=== PATIENT | male | born 1940 | race Caucasian/White ===

== ENCOUNTER → 2021-12-11 | Outpatient (CLI) | payer MEDICARE ==
--- NOTE | 2021-12-12 09:11 | US ---
EXAMINATION TYPE: US kidneys/renal and bladder DATE OF EXAM: 12/11/2021 COMPARISON: NONE CLINICAL HISTORY: 81-year-old male R94.4 abnormal KIDNEY FUNCTION RESULTS. TECHNIQUE: Multiple sonographic images of the kidneys and bladder are obtained. FINDINGS: EXAM MEASUREMENTS: Right Kidney: 8.9 x 3.6 x 4.1 cm Left Kidney: 10.8 x 5.8 x 4.7 cm Right Kidney: No hydronephrosis or masses seen Left Kidney: lower/lateral cyst measures 2.0 x 2.0 x 2.3 cmmeasuring 2.0 x 2.0 x 2.3 cm Bladder: there is some mild trabeculated thickening to the wOnly left jet seen in three minutes of sc an time. three minutes of scan time. Incidental note is made of grossly enlarged prostate impressing on the base of the bladder. IMPRESSION: 1. No hydronephrosis. 2. Patel prostatomegaly impressing onto the base of the bladder. Bladder wall appears thickened and t rabeculated, possibly hypertrophy relating to BPH and chronic bladder outlet obstruction. Correlate w ith PSA values and patient's symptoms.
== END | disposition home or self-care (01) ==
LOC: RADUSWWP 16:03
PROVIDERS: ATTEND Family Medicine
DX: N40.0 Benign prostatic hyperplasia without lower urinary tract symptoms (principal); R94.4 Abnormal results of kidney function studies
CPT/HCPCS: 76770

== ENCOUNTER 2022-08-02 07:49 | Day surgery (SDC) | payer MEDICARE ==
[2022-08-02 08:59] VITALS: RESP 16; TEMP 97.5
--- NOTE | 2022-08-02 11:21 | FL ---
INDICATION: Patient age:Male; 81 years old; Reason for study: M50.01 cervical disc dis R26.89 abn gait/mobility; PHH, with history of lumbar and thoracic M50.01 cervical disc dis R26.89 abn gait/mobility. COMPARISON: MRI cervical spine 06/18/2022 After the procedure was explained and informed consent was obtained from the patient, the patient was prepped and draped in the usual sterile fashion. Patient was put in the prone position and the lower lumbar spine was imaged. 1% Lidocaine was used as local anesthetic using a 25 gauge needle. Several attempts were performed to enter into the lumbar thecal sac due to scoliotic and degenerative changes of the lumbar spine. Dr. Ngo was then asked to help with the procedure and was able to gain acce ss with a 22-gauge spinal needle into the thecal sac with return of clear CSF fluid under constant fl uoroscopic guidance. Approximately 14 cc of Isovue M200 contrast was injected into the thecal sac. T he needle was then removed and a Band-Aid was applied. The patient tolerated procedure well. The patient was then sent to the CT unit for CT exam after appr oximately 30 minutes to let the contrast diffuse through the spine.. Fluoroscopic time: 1 minute 57 seconds Fluoroscopic images: 8 IMPRESSIONS: Technically challenging but successful myelogram with CT myelogram to follow.
--- NOTE | 2022-08-02 12:42 | CT ---
EXAMINATION TYPE: CT lumbar spine w con, CT cervical spine w con, CT thoracic spine w con CT DLP: 1034 (accession [id number]), 679 (accession [id number]), 1226 (accession [id number]) mGycm, Automat ed exposure control for dose reduction was used. DATE OF EXAM: 08/02/2022 11:41 AM COMPARISON: Fluoroscopic myelogram 08/02/2022, MRI cervical spine 06/18/2022. CLINICAL INDICATION:Male, 81 years old with history of M50.01 cervical disc dis R26.89 abn gait/mobi lity; PHH, Abnormal gait/mobility TECHNIQUE: Multiple axial images were obtained of the cervical, thoracic, lumbar spine after lumbar approach fluoroscopic allograft was performed. Soft tissue and bone windows in coronal and sagittal planes were obtained and reviewed. FINDINGS: Cervical spine: Alignment: Grade 1 anterolisthesis of C7 on T1. Bone: No evidence of fracture. Postsurgical changes from anterior cervical fusion hardware involving C3-C6 with additional bilateral pedicular screws and rods involving C3-C6 with associated laminectomy changes. The hardware creates streak artifact limiting evaluation. Hardware appears intact. No perip rosthetic lucency identified to suggest loosening. Discs: . Posterior disc osteophyte complex is present which minimally narrows the anterior thecal sac at C2-C3. Bilateral facet uncovertebral hypertrophy are present with mild bilateral neural foraminal stenosis. Poor evaluation from C3 to C6 due to streak artifact from the fusion hardware. Posterior disc osteoph yte complex at C3-C4 with mild effacement of anterior thecal sac. Bilateral facet and uncovertebral j oint arthropathy are present with mild bilateral neural foraminal stenosis. No gross evidence of sign ificant central canal stenosis at C4-C5. Bilateral facet and uncovertebral joint arthropathy demonstr ated with moderate bilateral neural foraminal stenosis. No significant disc pathology identified at C 5-C6. Bilateral facet and uncovertebral arthropathy are present with moderate bilateral neural forami nal stenosis. No significant central canal stenosis at C6-C7. Mild to moderate bilateral neural foraminal stenosis at C6-C7. Other: Partial visualization of median sternotomy wires. Hypodense 1.3 cm nodule within the left thyr oid lobe. Thoracic spine: Alignment: Mild levo curvature of the thoracic spine. Minimal Grade 1 anterolisthesis of T5 on T6 wit h uncovering of the disc. Bone: No evidence of fracture is identified. Multilevel facet arthropathy. Discs: Multilevel degenerative disc disease with disc space narrowed, endplate sclerosis, vacuum disc disease, and anterior osteophytosis. Central disc protrusion at T6-T7 with mild effacement of the anterior thecal sac. Broad-based disc bu lges at T7-T8, T10-T11 T11-T12 with minimal effacement of the anterior thecal sac. Posterior disc ost eophyte complex at T8-T9 with mild effacement of the anterior left thecal sac. The remaining thoracic disc levels do not demonstrate significant central canal stenosis. No significant neural foraminal stenosis demonstrated involving the thoracic spine. Benign-appearing round bone island within the T2 vertebral body. Lumbar spine: Alignment: There are 5 lumbar type vertebral bodies. Levoscoliotic curvature of the lumbar spine. Bone: No evidence of fracture is identified. Multilevel facet arthropathy. Discs: Multilevel Schmorl's nodes. Multilevel degenerative disc disease with disc space narrowed, end plate sclerosis, vacuum disc disease, and anterior osteophytosis. T12-L1: No spinal canal or neural foraminal stenosis is identified. L1-L2: No disc herniation identified. No significant central canal stenosis. Bilateral facet arthropa thy with ligamentum flavum buckling demonstrated. Moderate left and mild right neural foraminal steno sis. L2-L3: No disc herniation identified. Marked bilateral facet arthropathy with ligamentum flavum buckl ing contributing to mild spinal canal stenosis. The neural foramen are patent bilaterally. L3-L4: Eccentric left disc bulge with bilateral facet arthropathy and ligamentum flavum buckling cont ribute to moderate spinal canal stenosis. L4-L5: Marked bilateral facet hypertrophy and ligamentum flavum buckling resulting in moderate spina l canal stenosis. No disc herniation identified. Moderate left neural foraminal stenosis. The right n eural foramen is patent. L5-S1: Broad-based disc bulge with ligamentum flavum buckling and bilateral facet arthropathy contrib uting to mild to moderate central canal stenosis. The neural foramen are patent bilaterally. Other: Nonobstructive bilateral renal calculi. Atherosclerotic calcification of the aorta sigmoid div erticulosis without evidence for acute diverticulitis. IMPRESSION: Cervical spine: 1. No evidence for fracture the cervical spine. 2. Limited examination due to streak artifact from anterior and posterior cervical fusion changes. Fraga rdware appears intact. 3. Multilevel degenerative disc disease and osteoarthritic changes as described above. 4. Grade 1 anterolisthesis of C7 on T1. Thoracic spine: 1. No evidence for fracture of the thoracic spine. 2. T6-T7 central disc herniation with mild effacement of anterior thecal sac. 3. Multilevel degenerative disc disease as described above. Lumbar spine: 1. No evidence for fracture of the lumbar spine. 2. No evidence for disc herniation. 3. Multilevel degenerative disc disease and osteophytic changes. This is most pronounced at L4-L5 an d L5-S1 as described above. 4. Nonobstructive bilateral renal calculi.
[2022-08-02 14:13] VITALS: BP 120/77; PULSE 70
== END 2022-08-02 14:14 | disposition home or self-care (01) ==
LOC: RADPROMAIN 07:49
PROVIDERS: ATTEND Psychiatry & Neurology Neurology
DX: M50.01 Cervical disc disorder with myelopathy, high cervical region (principal); R26.89 Other abnormalities of gait and mobility; E78.5 Hyperlipidemia, unspecified; Z98.890 Other specified postprocedural states; Z82.49 Family history of ischemic heart disease and other diseases of the circulatory system; Z86.16 Personal history of COVID-19
CPT/HCPCS: 62305; 72129; 72126; 72132; J2001; Q9966

== ENCOUNTER 2023-05-16 16:04 | Inpatient (IN) | payer MEDICARE ==
[2023-05-16] MEDS ORDERED: HEPARIN SODIUM 1,000 UN/ML (10ML VL) IV PRN (16:12)
[2023-05-16] MEDS ORDERED: DILTIAZEM 125 MG in SODIUM CHLORIDE 0.9% 100 ML IV SCH (16:15)
[2023-05-16] MEDS ORDERED: HEPARIN SOD,PORK IN 0.45% NACL 25,000 UNIT in 0.45% NACL 1 250ML.BAG IV SCH (16:15)
[2023-05-16 16:25] LABS: Basophils % (A) 0 %; Eosinophils # (A) 0.2 k/uL (0-0.7); Eosinophils % (A) 3 %; HCT 41.6 % (39.0-53.0); HGB 13.8 gm/dL (13.0-17.5); Lymphocytes # (A) 1.7 k/uL (1.0-4.8); Lymphocytes % (A) 25 %; MCH 31.1 pg (25.0-35.0); MCHC 33.2 g/dL (31.0-37.0); MCV 93.6 fL (80.0-100.0); Mean Platelet Volume 7.1; Monocytes # (A) 0.4 k/uL (0-1.0); Monocytes % (A) 6 %; Neutrophils # (A) 4.2 k/uL (1.3-7.7); Neutrophils % (A) 64 %; Platelet Count 199 k/uL (150-450); RBC 4.45 m/uL (4.30-5.90); RDW 12.9 % (11.5-15.5); WBC 6.6 k/uL (3.8-10.6)
[2023-05-16 16:34] LABS: INR 1.2 (<1.2); Partial Thromboplastin Time 28.6 sec (22.0-30.0); Prothrombin Time 12.4 sec (10.0-12.5)
[2023-05-16 16:46] LABS: ALT 21 U/L (4-49); AST 28 U/L (17-59); African American GFR (CKD) 71 (>60 ml/min/1.73 sqM); Albumin 3.8 g/dL (3.5-5.0); Alkaline Phosphatase 106 U/L (38-126); Anion Gap 13 mmol/L; Blood Urea Nitrogen 19 mg/dL (9-20); Calcium 9.3 mg/dL (8.4-10.2); Carbon Dioxide 22 mmol/L (22-30); Chloride 108 mmol/L (98-107); Glucose 110 mg/dL (74-99); Non-African American GFR(CKD) 61 (>60 ml/min/1.73 sqM); Potassium 4.4 mmol/L (3.5-5.1); Sodium 143 mmol/L (137-145); Total Bilirubin 1.2 mg/dL (0.2-1.3); Total Protein 6.6 g/dL (6.3-8.2)
--- NOTE | 2023-05-16 17:40 | ED ---
Arrhythmia/Palpitations HPI - General Chief Complaint: Arrhythmia/Palpitations Stated Complaint: Afib-Transfer Source: EMS Mode of arrival: EMS Limitations: no limitations - History of Present Illness Initial Comments: 82-year-old male presents as a transfer from [facility]. He has a history of coronary artery disease with cabg x3. He was having a cough without chest pain. This has been persistent since he had covid a few months ago. Went into his pcp clinic today and they transferred him to the hospital due to elevated heart rate. Patient found to be in A. fib with RVR which is new onset. He also has a left bundle-branch block however this was present March 2021. Viral swab was performed and was negative. Laboratory studies demonstrated a troponin of 0.029 and a BNP of 7610. Patient transferred to our facility on a Cardizem and heparin drip as he does follow with cardiology at our facility. - Related Data Home Medications Medication Instructions Recorded Confirmed Aspirin [[place] Aspirin EC] 81 mg PO DAILY 07/16/22 05/16/23 Atorvastatin [Lipitor] 40 mg PO HS 07/16/22 05/16/23 Tamsulosin [Flomax] 0.4 mg PO BID 07/16/22 05/16/23 Benzonatate [Tessalon Perles] 100 mg PO TID PRN 05/16/23 05/16/23 Previous Rx's Medication Instructions Recorded Apixaban [Eliquis] 2.5 mg PO BID #90 tab 05/18/23 Metoprolol Tartrate [Lopressor] 50 mg PO BID #90 tab 05/18/23 guaiFENesin-DM 100-10MG/5ML 10 ml PO Q6HR PRN #90 ml 05/18/23 [Robitussin DM] lisinopriL 2.5 mg PO DAILY #30 tablet 05/18/23 Allergies Allergy/AdvReac Type Severity Reaction Status Date / Time No Known Allergies Allergy Verified 05/16/23 18:28 Review of Systems ROS Statement: Those systems with pertinent positive or pertinent negative responses have been documented in the HPI. ROS Other: All systems not noted in ROS Statement are negative. Past Medical History Past Medical History: Coronary Artery Disease (CAD), Hyperlipidemia, Hypertension, Prostate Disorder, Vascular Disorder Additional Past Medical History / Comment(s): Neuropathy both hands and feet. back pain History of Any Multi-Drug Resistant Organisms: None Reported Past Surgical History: Back Surgery, Coronary Bypass/CABG, Heart Catheterization With Stent, Orthopedic Surgery Additional Past Surgical History / Comment(s): cervical surgery for numbness, bilateral knee replacement, bilateral Rotator cuff surgery, rt carotid surgery, CABG -1995, stent 2019 Past Anesthesia/Blood Transfusion Reactions: No Reported Reaction Date of Last Stent Placement:: 2019 Past Psychological History: No Psychological Hx Reported Smoking Status: Former smoker Past Alcohol Use History: Rare Past Drug Use History: None Reported - Past Family History Father Family Medical History: No Reported History General Exam Limitations: no limitations General appearance: alert, in no apparent distress Head exam: Present: atraumatic, normocephalic, normal inspection Eye exam: Present: normal appearance, PERRL, EOMI. Absent: scleral icterus, conjunctival injection, periorbital swelling ENT exam: Present: normal exam, mucous membranes moist Neck exam: Present: normal inspection. Absent: tenderness, meningismus, lymphadenopathy Respiratory exam: Present: normal lung sounds bilaterally. Absent: respiratory distress, wheezes, rales, rhonchi, stridor Cardiovascular Exam: Present: regular rate, irregular rhythm, normal heart sounds. Absent: systolic murmur, diastolic murmur, rubs, gallop, clicks GI/Abdominal exam: Present: soft, normal bowel sounds. Absent: distended, tenderness, guarding, rebound, rigid Extremities exam: Present: normal inspection, full ROM, normal capillary refill. Absent: tenderness, pedal edema, joint swelling, calf tenderness Back exam: Present: normal inspection Neurological exam: Present: alert, oriented X3, CN II-XII intact Psychiatric exam: Present: normal affect, normal mood Skin exam: Present: warm, dry, intact, normal color. Absent: rash Course Vital Signs 05/16/23 05/16/23 05/16/23 16:06 19:25 20:00 Temperature 98.3 F Pulse Rate 77 72 70 Respiratory 16 16 Rate Blood Pressure 144/95 131/80 O2 Sat by Pulse 98 96 Oximetry 05/17/23 05/17/23 05/17/23 00:00 04:00 07:51 Temperature Pulse Rate 70 76 76 Respiratory 21 18 Rate Blood Pressure 104/72 123/90 O2 Sat by Pulse 95 97 Oximetry 05/17/23 05/17/23 05/17/23 08:00 08:46 11:30 Temperature Pulse Rate 84 76 73 Respiratory 16 19 Rate Blood Pressure 118/84 107/67 O2 Sat by Pulse 92 L 100 Oximetry 05/17/23 05/17/23 05/17/23 11:31 11:43 14:59 Temperature Pulse Rate 71 72 61 Respiratory Rate Blood Pressure O2 Sat by Pulse Oximetry 05/17/23 05/17/23 15:09 16:00 Temperature Pulse Rate 65 66 Respiratory 18 Rate Blood Pressure 111/39 O2 Sat by Pulse 98 Oximetry Medical Decision Making - Medical Decision Making Was pt. sent in by a medical professional or institution (, [facility], GENERAL PRACTICE, urgent care, hospital, or long term...) When possible be specific @ -[facility] Did you speak to anyone other than the patient for history (EMS, parent, family, police, friend...)? What history was obtained from this source @ -transferring facility Did you review nursing and triage notes (agree or disagree)? Why? @ -I reviewed and agree with nursing and triage notes Were old charts reviewed (outside hosp., previous admission, EMS record, old EKG, old radiological studies, urgent care reports/EKG's, long term records)? Report findings @ -old charts were reviewed - report from [facility] Differential Diagnosis (chest pain, altered mental status, abdominal pain women, abdominal pain men, vaginal bleeding, weakness, fever, dyspnea, syncope, headache, dizziness, GI bleed, back pain, seizure, CVA, palpatations, mental health, musculoskeletal)? @ -nstemi, stemi, unstable angina, pe EKG interpreted by me (3pts min.). @ -Yes and demonstrates a flutter with a rate of 77. QRS 164. QTC of 428. Right bundle branch block. Left bundle branch block. Negative for sgarbossa criteria X-rays interpreted by me (1pt min.). @ -None done CT interpreted by me (1pt min.). @ -None done U/S interpreted by me (1pt. min.). @ -None done What testing was considered but not performed or refused? (CT, X-rays, U/S, labs)? Why? @ -None What meds were considered but not given or refused? Why? @ -None Did you discuss the management of the patient with other professionals (professionals i.e. , PA, GENERAL PRACTICE, lab, RT, psych nurse, social media community manager, inbound telemarketer, teacher, hazard mitigation officer, case supervisor)? Give summary @ -dr rodrigez for admission Was smoking cessation discussed for >3mins.? @ -No Was critical care preformed (if so, how long)? @ -yes, 35 minutes for heparin management Were there social determinants of health that impacted care today? How? (Ho melessness, low income, unemployed, alcoholism, drug addiction, transportation, low edu. Level, literacy, decrease access to med. care, alf, rehab)? @ -No Was there de-escalation of care discussed even if they declined (Discuss DNR or withdrawal of care, Hospice)? DNR status @ -No What co-morbidities impacted this encounter? (DM, HTN, Smoking, COPD, CAD, Cancer, CVA, ARF, Chemo, Hep., AIDS, mental health diagnosis, sleep apnea, morbid obesity)? @ -afib Was patient admitted / discharged? Hospital course, mention meds given and route, prescriptions, significant lab abnormalities, going to OR and other pertinent info. @ -Upon arrival patient was placed into trauma 2. Thorough history and physical exam was performed. EKG was obtained which demonstrates A. fib with a controlled rate at this time. Patient remains on Cardizem and heparin drip. I repeated laboratory studies. Spoke with Dr. rodrigez for admission with cardiology to consult Undiagnosed new problem with uncertain prognosis? @ -yes Drug Therapy requiring intensive monitoring for toxicity (Heparin, Nitro, Insulin, Cardizem)? @ -heparin Were any procedures done? @ -No Diagnosis/symptom? @ -acute cp, afib with rvr Acute, or Chronic, or Acute on Chronic? @ -acute Uncomplicated (without systemic symptoms) or Complicated (systemic symptoms)? @ -complicated Side effects of treatment? @ -No Exacerbation, Progression, or Severe Exacerbation? @ -No Poses a threat to life or bodily function? How? (Chest pain, USA, DC, pneumonia, PE, COPD, DKA, ARF, appy, cholecystitis, CVA, Diverticulitis, Homicidal, Suicidal, threat to staff... and all critical care pts) @ -yes, patient in afib with rapid rate - Lab Data Result diagrams: 05/17/23 04:52 05/17/23 04:52 Lab Results 05/16/23 05/16/23 05/16/23 Range/Units 16:14 16:14 16:14 WBC 6.6 (3.8-10.6) k/uL RBC 4.45 (4.30-5.90) m/uL Hgb 13.8 (13.0-17.5) gm/dL Hct 41.6 (39.0-53.0) % MCV 93.6 (80.0-100.0) fL MCH 31.1 (25.0-35.0) pg MCHC 33.2 (31.0-37.0) g/dL RDW 12.9 (11.5-15.5) % Plt Count 199 (150-450) k/uL MPV 7.1 Neutrophils % 64 % Lymphocytes % 25 % Monocytes % 6 % Eosinophils % 3 % Basophils % 0 % Neutrophils # 4.2 (1.3-7.7) k/uL Lymphocytes # 1.7 (1.0-4.8) k/uL Monocytes # 0.4 (0-1.0) k/uL Eosinophils # 0.2 (0-0.7) k/uL Basophils # 0.0 (0-0.2) k/uL PT 12.4 (10.0-12.5) sec INR 1.2 H (<1.2) APTT 28.6 (22.0-30.0) sec Sodium 143 (137-145) mmol/L Potassium 4.4 (3.5-5.1) mmol/L Chloride 108 H (98-107) mmol/L Carbon Dioxide 22 (22-30) mmol/L Anion Gap 13 mmol/L BUN 19 (9-20) mg/dL Creatinine 1.12 (0.66-1.25) mg/dL Est GFR (CKD-EPI)AfAm 71 (>60 ml/min/1.73 sqM) Est GFR (CKD-EPI)NonAf 61 (>60 ml/min/1.73 sqM) Glucose 110 H (74-99) mg/dL Calcium 9.3 (8.4-10.2) mg/dL Magnesium 2.0 (1.6-2.3) mg/dL Total Bilirubin 1.2 (0.2-1.3) mg/dL AST 28 (17-59) U/L ALT 21 (4-49) U/L Alkaline Phosphatase 106 (38-126) U/L Troponin I (0.000-0.034) ng/mL Total Protein 6.6 (6.3-8.2) g/dL Albumin 3.8 (3.5-5.0) g/dL Influenza Type A (PCR) (Not Detectd) Influenza Type B (PCR) (Not Detectd) RSV (PCR) (Not Detectd) SARS-CoV-2 (PCR) (Not Detectd) 05/16/23 05/16/23 Range/Units 16:14 16:14 WBC (3.8-10.6) k/uL RBC (4.30-5.90) m/uL Hgb (13.0-17.5) gm/dL Hct (39.0-53.0) % MCV (80.0-100.0) fL MCH (25.0-35.0) pg MCHC (31.0-37.0) g/dL RDW (11.5-15.5) % Plt Count (150-450) k/uL MPV Neutrophils % % Lymphocytes % % Monocytes % % Eosinophils % % Basophils % % Neutrophils # (1.3-7.7) k/uL Lymphocytes # (1.0-4.8) k/uL Monocytes # (0-1.0) k/uL Eosinophils # (0-0.7) k/uL Basophils # (0-0.2) k/uL PT (10.0-12.5) sec INR (<1.2) APTT (22.0-30.0) sec Sodium (137-145) mmol/L Potassium (3.5-5.1) mmol/L Chloride (98-107) mmol/L Carbon Dioxide (22-30) mmol/L Anion Gap mmol/L BUN (9-20) mg/dL Creatinine (0.66-1.25) mg/dL Est GFR (CKD-EPI)AfAm (>60 ml/min/1.73 sqM) Est GFR (CKD-EPI)NonAf (>60 ml/min/1.73 sqM) Glucose (74-99) mg/dL Calcium (8.4-10.2) mg/dL Magnesium (1.6-2.3) mg/dL Total Bilirubin (0.2-1.3) mg/dL AST (17-59) U/L ALT (4-49) U/L Alkaline Phosphatase (38-126) U/L Troponin I 0.034 (0.000-0.034) ng/mL Total Protein (6.3-8.2) g/dL Albumin (3.5-5.0) g/dL Influenza Type A (PCR) Not Detected (Not Detectd) Influenza Type B (PCR) Not Detected (Not Detectd) RSV (PCR) Not Detected (Not Detectd) SARS-CoV-2 (PCR) Not Detected (Not Detectd) Disposition Clinical Impression: Atrial fibrillation with RVR Disposition: ADMITTED IP TO THIS [facility] Condition: Stable Is patient prescribed a controlled substance at d/c from ED?: No Time of Disposition: 18:00 Decision to Admit Reason: Admit from EC Decision Date: 05/16/23 Decision Time: 18:01
[2023-05-16] MEDS ORDERED: NALOXONE 0.4 MG/ML 1 ML VIAL IV PRN ×2 (18:01→20:32)
[2023-05-16] MEDS ORDERED: ACETAMINOPHEN TAB 325 MG TAB PO PRN (20:32)
[2023-05-16] MEDS ORDERED: BENZONATATE 100 MG CAP PO PRN (20:33)
--- NOTE | 2023-05-16 20:39 | P.HPIM ---
History of Present Illness H&P Date: 05/16/23 Chief Complaint: cough 82-year-old male presents as a transfer from [facility]. He has a history of coronary artery disease with cabg x3 and one stent, hypertension. He was having a cough without chest pain. This has been persistent since he had covid a few months ago. Went into his pcp clinic today and they transferred him to the hospital due to elevated heart rate. Patient found to be in A. fib with RVR which is new onset. He also has a left bundle-branch block however this was present March 2021. Viral panel was done at [facility] was performed and was negative. Laboratory studies demonstrated a troponin of 0.029 and a BNP of 7610. Patient transferred to our facility on a Cardizem and heparin drip as he does follow with cardiology at our facility. Denies having palpitations, fevers or chills, chest pain or shortness of breath.x did not show anything acute. Troponin was 0.0-9. Review of Systems Complete review of system performed, pertinent positives per HPI otherwise negative Past Medical History Past Medical History: Coronary Artery Disease (CAD), Hyperlipidemia, Hyp ertension, Prostate Disorder, Vascular Disorder Additional Past Medical History / Comment(s): Neuropathy both hands and feet. back pain History of Any Multi-Drug Resistant Organisms: None Reported Past Surgical History: Back Surgery, Coronary Bypass/CABG, Heart Catheterization With Stent, Orthopedic Surgery Additional Past Surgical History / Comment(s): cervical surgery for numbness, bilateral knee replacement, bilateral Rotator cuff surgery, rt carotid surgery, CABG -1995, stent 2019 Past Anesthesia/Blood Transfusion Reactions: No Reported Reaction Date of Last Stent Placement:: 2019 Past Psychological History: No Psychological Hx Reported Smoking Status: Former smoker Past Alcohol Use History: Rare Past Drug Use History: None Reported - Past Family History Father Family Medical History: No Reported History Medications and Allergies Home Medications Medication Instructions Recorded Confirmed Type Aspirin [[place] Aspirin EC] 81 mg PO DAILY 07/16/22 05/16/23 History Atorvastatin [Lipitor] 40 mg PO HS 07/16/22 05/16/23 History Isosorbide Mononitrate [Isosorbide 30 mg PO DAILY 07/16/22 05/16/23 History Mononitrate ER] Tamsulosin [Flomax] 0.4 mg PO BID 07/16/22 05/16/23 History lisinopriL 2.5 mg PO DAILY 07/16/22 05/16/23 History Benzonatate [Tessalon Perles] 100 mg PO TID PRN 05/16/23 05/16/23 History Allergies Allergy/AdvReac Type Severity Reaction Status Date / Time No Known Allergies Allergy Verified 05/16/23 18:28 Physical Exam Vitals: Vital Signs Temp Pulse Resp BP Pulse Ox 05/16/23 16:06 98.3 F 77 16 144/95 98 Intake and Output 05/16/23 05/16/23 05/16/23 06:59 14:59 22:59 Other: Weight 58.967 kg Constitutional: No acute distress, conversant, pleasant Eyes:Anicteric sclerae, moist conjunctiva, no lid-lag, PERRLA, ENMT: Oropharynx clear, no erythema, exudates Neck: Supple, FROM, no masses, or JVD, No carotid bruits, No thyromegaly Lungs: Clear to auscultation, Clear to percussion, Normal respiratory effort, no accessory muscle use Cardiovascular: Irregular. No murmurs, gallops, or rubs, No peripheral edema Abdominal: Soft, Nontender, no guarding, rebound or rigidity, Normoactive bowel sounds, No hepatomegaly, No splenomegaly, No palpable mass Skin: Normal temperature, tone, texture, turgor, no induration, No subcutaneous nodules, No rash, lesions, No ulcers Extremities: No digital cyanosis, No clubbing, Pedal pulses intact and symmetric al, Radial pulses intact and symmetrical, No calf tenderness Psychiatric: Alert and oriented to person, place and time, appropriate affect, intact judgement Neuro: Muscles Strength 5/5 in all 4 extremities, Sensation to light touch grossly present throughout, Cranial nerves II-XII grossly intact, no focal sensory deficits Results CBC & Chem 7: 05/16/23 16:14 05/16/23 16:14 Labs: Abnormal Lab Results - Last 24 Hours (Table) 05/16/23 05/16/23 Range/Units 16:14 16:14 INR 1.2 H (<1.2) Chloride 108 H (98-107) mmol/L Glucose 110 H (74-99) mg/dL Assessment and Plan Plan: Atrial fibrillation with rapid ventricular response Heart rate is currently controlled on Cardizem drip, continue heparin drip Echocardiogram Cardiology consult Monitor on telemetry Coronary artery disease Currently stable Recheck troponin, negative ALLERGIC bronchitis Likely secondary to recent covid Try duonebs History of hypertension Benign prostatic hypertrophy Stable Continue medications Admit to inpatient, expected length of stay more than 2 midnights
[2023-05-16] MEDS: TAMSULOSIN 0.4 MG CAP.ER.24H PO SCH (20:49)
[2023-05-16] MEDS: ATORVASTATIN 40 MG TAB PO SCH (20:49)
[2023-05-17 05:18] LABS: Basophils # (A) 0.1 k/uL (0-0.2); Basophils % (A) 1 %; Eosinophils # (A) 0.3 k/uL (0-0.7); Eosinophils % (A) 4 %; HCT 39.1 % (39.0-53.0); Lymphocytes # (A) 1.5 k/uL (1.0-4.8); Lymphocytes % (A) 20 %; MCH 31.1 pg (25.0-35.0); MCHC 33.1 g/dL (31.0-37.0); MCV 93.7 fL (80.0-100.0); Mean Platelet Volume 7.6; Monocytes # (A) 0.4 k/uL (0-1.0); Monocytes % (A) 5 %; Neutrophils % (A) 69 %; Platelet Count 199 k/uL (150-450); RBC 4.17 m/uL (4.30-5.90); RDW 13.3 % (11.5-15.5); WBC 7.3 k/uL (3.8-10.6)
[2023-05-17 06:00] LABS: African American GFR (CKD) 74 (>60 ml/min/1.73 sqM); Anion Gap 9 mmol/L; Blood Urea Nitrogen 20 mg/dL (9-20); Calcium 8.9 mg/dL (8.4-10.2); Carbon Dioxide 22 mmol/L (22-30); Chloride 108 mmol/L (98-107); Glucose 115 mg/dL (74-99); Non-African American GFR(CKD) 64 (>60 ml/min/1.73 sqM); Sodium 139 mmol/L (137-145)
[2023-05-17] MEDS: IPRATROPIUM-ALBUTEROL 3 ML NEB INHALATION SCH ×4 (07:51→21:55)
[2023-05-17] MEDS: ASPIRIN 81 MG PO SCH (08:45)
[2023-05-17] MEDS ORDERED: ISOSORBIDE MONONITRATE ER 30 MG TAB.ER.24H PO SCH (09:00)
[2023-05-17] MEDS: APIXABAN 2.5 MG TABLET PO SCH ×2 (11:15→19:59)
[2023-05-17] MEDS: METOPROLOL TARTRATE 50 MG TAB PO SCH ×2 (11:16→19:59)
--- NOTE | 2023-05-17 12:28 | P.PN ---
Subjective Progress Note Date: 05/17/23 Hospital Course: 82-year-old male presents as a transfer from [facility]. He has a history of coronary artery disease with cabg x3 and one stent, hypertension. He was having a cough without chest pain. This has been persistent since he had covid a few months ago. Went into his pcp clinic today and they transferred him to the hospital due to elevated heart rate. Patient found to be in A. fib with RVR which is new onset. He also has a left bundle-branch block however this was present March 2021. Viral panel was done at [facility] was performed and was negative. Laboratory studies demonstrated a troponin of 0.029 and a BNP of 7610. Patient transferred to our facility on a Cardizem and heparin drip as he does follow with cardiology at our facility. Currently rate controlled. Laboratory workup unremarkable except for troponin elevated to 0.039. Remains on Cardizem drip. Cardiology is consulted. Subjective: Patient seen and examined at bedside. No acute events overnight. Denies any chest pain, palpitations, lightheadedness. Does have a cough is persistent. Pertinent positives and negatives as discussed above, a complete review of systems was performed and all other systems are negative. Vitals Signs Reviewed. General: nontoxic, no distress, appears at stated age Derm: warm, dry Head: atraumatic, normocephalic, symmetric Eyes: EOMI, no lid lag, anicteric sclera Mouth: no lip lesion, mucus membranes moist Cardiovascular: S1S2 irregular, no murmur Lungs: CTA bilateral, no rhonchi, no rales , no accessory muscle use Abdominal: soft, nontender to palpation, no guarding, no appreciable organomegaly Ext: no gross muscle atrophy, no edema, no contractures Neuro: CN II-XI grossly intact, no focal neuro deficits Psych: Alert, oriented, appropriate affect Data Reviewed Today: Pertinent Labs: WBC 7.3, hemoglobin 13, creatinine 1.08 Imaging: No new imaging Assessment and Plan: Atrial fibrillation with rapid ventricular response, now rate controlled NSTEMI, type 2 History of CAD -Cardiology consulted, pending recommendations, started on metoprolol 50 twice a day, Eliquis 2.5 twice a day, Cardizem gtt at 2.5 per hour -Continue telemetry monitoring -Echocardiogram pending -On aspirin 81 mg, atorvastatin 40 mg Chronic bronchitis Likely secondary to recent covid -DuoNeb's 4 times a day, Robitussin 10 mL every 6 hours when necessary History of hypertension Benign prostatic hypertrophy Stable Continue medications DVT ppx: Eliquis Code status: Full code Anticipated discharge place: Pending clinical course Anticipated discharge time: Pending clinical course Objective - Vital Signs Vital signs: Vital Signs Temp 98.3 F 05/16/23 16:06 Pulse 72 05/17/23 11:43 Resp 19 05/17/23 11:30 BP 107/67 05/17/23 11:30 Pulse Ox 100 05/17/23 11:30 FiO2 Intake & Output 05/16/23 05/17/23 05/17/23 18:59 06:59 18:59 Intake Total 36.795 Balance 36.795 Weight 58.967 kg Intake: Intake, IV Titration 36.795 Amount Heparin Sod,Pork in 0.45% 36.795 NaCl 25,000 unit In 0.45 % NaCl 1 250ml.bag @ 12 UNITS/KG/HR 7.076 mls/hr IV .Q24H [facility] Rx#: [id number] - Labs CBC & Chem 7: 05/17/23 04:52 05/17/23 04:52 Labs: Abnormal Lab Results - Last 24 Hours (Table) 05/16/23 05/16/23 05/16/23 Range/Units 16:14 16:14 20:27 RBC (4.30-5.90) m/uL INR 1.2 H (<1.2) APTT 33.3 H (22.0-30.0) sec Chloride 108 H (98-107) mmol/L Glucose 110 H (74-99) mg/dL Troponin I (0.000-0.034) ng/mL 05/16/23 05/17/23 05/17/23 Range/Units 20:27 00:44 04:52 RBC 4.17 L (4.30-5.90) m/uL INR (<1.2) APTT (22.0-30.0) sec Chloride (98-107) mmol/L Glucose (74-99) mg/dL Troponin I 0.039 H* 0.038 H* (0.000-0.034) ng/mL 01/06/24 01/06/24 Range/Units 04:52 04:52 RBC (4.30-5.90) m/uL INR (<1.2) APTT 56.5 H (22.0-30.0) sec Chloride 108 H (98-107) mmol/L Glucose 115 H (74-99) mg/dL Troponin I (0.000-0.034) ng/mL
--- NOTE | 2023-05-17 13:44 | CA ---
Transthoracic Echo Report Name: [place] Age: 82 Gender: M : 1940 Exam Date: 05/17/2023 10:58 Exam Location: [place] [facility] Ht (in): 65 Wt (lb): 130 Ordering Physician: Felipe Singh MD Attending/Referring Phys: [id number], [place] [employer] Cutting Machine Operator Flora Ervin [facility] Procedure CPT: Indications: a-fib Cardiac Hx: Technical Quality: Fair Contrast 1: Definity Total Dose (mL): 6 Contrast 2: Total Dose (mL): MEASUREMENTS (Male / Female) Normal Values 2D ECHO LV Diastolic Diameter PLAX 5.5 cm 4.2 - 5.9 / 3.9 - 5.3 cm LV Systolic Diameter PLAX 4.7 cm IVS Diastolic Thickness 0.7 cm 0.6 - 1.0 / 0.6 - 0.9 cm LVPW Diastolic Thickness 0.9 cm 0.6 - 1.0 / 0.6 - 0.9 cm LV Relative Wall Thickness 0.3 LVOT Diameter 2.0 cm LV Diastolic Volume MOD BP 113.9 cm??? 67 - 155 / 56 - 104 cm??? LV Systolic Volume MOD BP 92.1 cm??? 22 - 58 / 19 - 49 cm??? LV Ejection Fraction MOD BP 19.1 % >= 55 % LV Cardiac Index MOD BP 1258.1 cm???/min???m??? LV Diastolic Volume MOD 4C 94.5 cm??? LV Systolic Volume MOD 4C 69.5 cm??? LV Ejection Fraction MOD 4C 26.5 % LV Cardiac Index MOD 4C 1443.0 cm???/min???m??? LV Diastolic Length 4C 8.0 cm LV Systolic Length 4C 7.4 cm LV Diastolic Volume MOD 2C 133.3 cm??? LV Systolic Volume MOD 2C 119.0 cm??? LV Ejection Fraction MOD 2C 10.8 % LV Cardiac Index MOD 2C 828.2 cm???/min???m??? LV Diastolic Length 2C 8.4 cm LV Systolic Length 2C 7.8 cm Ascending Aorta Diameter 3.3 cm DOPPLER AV Peak Velocity 124.9 cm/s AV Peak Gradient 6.2 mmHg AV Mean Velocity 97.6 cm/s AV Mean Gradient 4.1 mmHg AV Velocity Time Integral 20.7 cm LVOT Peak Velocity 99.3 cm/s LVOT Peak Gradient 3.9 mmHg LVOT Velocity Time Integral 16.1 cm LVOT Stroke Volume 51.7 cm??? LVOT Stroke Volume Index 31.4 ml/m??? LVOT Cardiac Index 2983.4 cm???/min???m??? AV Area Cont Eq vti 2.5 cm??? AV Area Cont Eq pk 2.6 cm??? MV Peak Velocity 115.9 cm/s MV Peak Gradient 5.4 mmHg MV Mean Velocity 59.9 cm/s MV Mean Gradient 1.8 mmHg MV Velocity Time Integral 29.9 cm MR Peak Velocity 396.5 cm/s MR Peak Gradient 62.9 mmHg Mitral E Point Velocity 96.9 cm/s MV Deceleration Time 96.1 ms LV E' Lateral Velocity 14.9 cm/s Mitral E to LV E' Lateral Ratio 6.5 LV E' Septal Velocity 8.4 cm/s Mitral E to LV E' Septal Ratio 11.5 TR Peak Velocity 305.0 cm/s TR Peak Gradient 37.2 mmHg Right Atrial Pressure 8.0 mmHg Pulmonary Artery Systolic Pressu 45.2 mmHg Right Ventricular Systolic Press 45.2 mmHg FINDINGS Left Ventricle Left ventricular wall thickness normal. Left ventricular cavity size at the upper limits of normal. Severely reduced left ventricular systolic function. Left ventricular ejection fraction is estimated at 25-30%. Right Ventricle Moderate right ventricular dilatation. Moderate pulmonary hypertension. Right Atrium Moderate right atrial dilatation. Left Atrium Moderate left atrial dilatation. Mitral Valve Mitral valve thickened. Severe mitral regurgitation. Aortic Valve Trileaflet aortic valve. Diffuse thickening (sclerosis) of the aortic valve cusps without reduced excursion. Trace aortic regurgitation. Tricuspid Valve Structurally normal tricuspid valve. Mild tricuspid regurgitation. Pulmonic Valve Structurally normal pulmonic valve. Trace pulmonic regurgitation. Pericardium No pericardial effusion. Aorta Normal size aortic root and proximal ascending aorta. CONCLUSIONS Severe LV dysfunction Moderate RV enlargement Previewed by: Dr. Porter Arambula MD (Electronically Signed) Final Date: 17 May 2023 13:44
--- NOTE | 2023-05-17 15:19 | P.CRDCN ---
History of Present Illness Consult date: 05/17/23 Consult reason: atrial fibrillation History of present illness: The patient is an 82-year-old male who follows in the office with Dr. Fulton. He presented to the hospital with worsening shortness of breath. He states he had an upper respiratory infection several months back and has had a residual cough. Over the last several days he has become short of breath. Cardiology has been consulted for atrial fibrillation, which is new for the patient. He was started on Cardizem and heparin drip. Heart rates have been reasonably well controlled. DIAGNOSTICS: Atrial fibrillation with left bundle branch block and frequent PVCs Echocardiogram shows severely reduced LV function at 25-30% with moderate right ventricular dilatation and moderate pulmonary hypertension Lab data: WBC 7.3, hemoglobin 13.0, hematocrit 39.1, platelet 199, sodium 139, potassium 4.0, BUN 20, creatinine 1.08, troponin 0.03 0.03, 0.03, AST 28, ALT 21, patient is negative for influenza A B, RSV and Covid 19. REVIEW OF SYSTEMS: No fever or chills. Positive for cough. No diaphoresis. Patient denies headache, dizziness, blurred vision, double vision. Patient denies any stomach discomfort. No nausea, vomiting. No hematochezia. No hematemesis. Denies any black stools or blood in his stools. Denies dysuria or hematuria. No muscle weakness or numbness. Positive for shortness of breath. Denies palpitations. PHYSICAL EXAMINATION: This is a 82-year-old male in no apparent distress at the time of my examination. HEENT: Head is atraumatic, normocephalic. Pupils are equal, round. There is no jugular venous distention. No carotid bruit is heard. CHEST EXAMINATION: Lungs are diminished to auscultation. No chest wall tenderness is noted on palpation or with deep breathing. HEART EXAMINATION: Irregular rate and rhythm. S1, S2 heard. No murmurs, gallops or rub. ABDOMEN: Soft, nontender. Bowel sounds are heard. No organomegaly noted. EXTREMITIES: 2+ peripheral pulses with no evidence of peripheral edema and no calf tenderness noted. NEUROLOGIC EXAMINATION: Patient is awake, alert and oriented x3. FINAL ASSESSMENT AND PLAN: New onset A. fib with RVR History of coronary artery disease with prior CABG Cardiomyopathy with dyskinesis Upper respiratory infection with chronic cough PLAN: Start oral beta blockers and oral anticoagulation Wean off of Cardizem drip and discontinue heparin drip after 4 hours Consider adding Spironolactone and KATERYNA inhibitor tomorrow Further recommendations based on clinical course I am dictating on behalf of Dr Porter Arambula's history/physical and assessment/plan. Past Medical History Past Medical History: Coronary Artery Disease (CAD), Hyperlipidemia, Hypertension, Prostate Disorder, Vascular Disorder Additional Past Medical History / Comment(s): Neuropathy both hands and feet. back pain History of Any Multi-Drug Resistant Organisms: None Reported Past Surgical History: Back Surgery, Coronary Bypass/CABG, Heart Catheterization With Stent, Orthopedic Surgery Additional Past Surgical History / Comment(s): cervical surgery for numbness, bilateral knee replacement, bilateral Rotator cuff surgery, rt carotid surgery, CABG -1995, stent 2019 Past Anesthesia/Blood Transfusion Reactions: No Reported Reaction Date of Last Stent Placement:: 2019 Past Psychological History: No Psychological Hx Reported Smoking Status: Former smoker Past Alcohol Use History: Rare Past Drug Use History: None Reported - Past Family History Father Family Medical History: No Reported History Medications and Allergies Home Medications Medication Instructions Recorded Confirmed Type Aspirin [Rodanthe Aspirin EC] 81 mg PO DAILY 07/16/22 05/16/23 History Atorvastatin [Lipitor] 40 mg PO HS 07/16/22 05/16/23 History Tamsulosin [Flomax] 0.4 mg PO BID 07/16/22 05/16/23 History Benzonatate [Tessalon Perles] 100 mg PO TID PRN 05/16/23 05/16/23 History Allergies Allergy/AdvReac Type Severity Reaction Status Date / Time No Known Allergies Allergy Verified 05/16/23 18:28 Physical Exam Vitals: Vital Signs Temp Pulse Resp BP Pulse Ox 05/17/23 15:09 65 05/17/23 14:59 61 05/17/23 11:43 72 05/17/23 11:31 71 05/17/23 11:30 73 19 107/67 100 05/17/23 08:46 76 16 118/84 92 L 05/17/23 08:00 84 05/17/23 07:51 76 05/17/23 04:00 76 18 123/90 97 05/17/23 00:00 70 21 104/72 95 05/16/23 20:00 70 05/16/23 19:25 72 16 131/80 96 05/16/23 16:06 98.3 F 77 16 144/95 98 Results 05/17/23 04:52 05/17/23 04:52 Cardiac Enzymes 05/16/23 05/16/23 05/16/23 Range/Units 16:14 16:14 20:27 AST 28 (17-59) U/L Troponin I 0.034 0.039 H* (0.000-0.034) ng/mL 05/17/23 Range/Units 00:44 AST (17-59) U/L Troponin I 0.038 H* (0.000-0.034) ng/mL Coagulation 05/16/23 05/16/23 05/17/23 Range/Units 16:14 20:27 04:52 PT 12.4 (10.0-12.5) sec APTT 28.6 33.3 H 56.5 H (22.0-30.0) sec CBC 05/16/23 05/17/23 Range/Units 16:14 04:52 WBC 6.6 7.3 (3.8-10.6) k/uL RBC 4.45 4.17 L (4.30-5.90) m/uL Hgb 13.8 13.0 (13.0-17.5) gm/dL Hct 41.6 39.1 (39.0-53.0) % Plt Count 199 199 (150-450) k/uL Comprehensive Metabolic Panel 05/16/23 05/17/23 Range/Units 16:14 04:52 Sodium 143 139 (137-145) mmol/L Potassium 4.4 4.0 (3.5-5.1) mmol/L Chloride 108 H 108 H (98-107) mmol/L Carbon Dioxide 22 22 (22-30) mmol/L BUN 19 20 (9-20) mg/dL Creatinine 1.12 1.08 (0.66-1.25) mg/dL Glucose 110 H 115 H (74-99) mg/dL Calcium 9.3 8.9 (8.4-10.2) mg/dL AST 28 (17-59) U/L ALT 21 (4-49) U/L Alkaline Phosphatase 106 (38-126) U/L Total Protein 6.6 (6.3-8.2) g/dL Albumin 3.8 (3.5-5.0) g/dL Current Medications Generic Name Dose Route Start Last Admin Trade Name Freq PRN Reason Stop Dose Admin Acetaminophen 650 mg 05/16/23 20:32 Acetaminophen Tab 325 Mg Tab PO Q6HR PRN Mild Pain or Fever > 100.5 Albuterol/Ipratropium 3 ml 05/17/23 08:00 05/17/23 14:59 Ipratropium-Albuterol 3 Ml Neb INHALATION 3 ml RT-QID TAWANDA Administration Apixaban 2.5 mg 05/17/23 09:15 05/17/23 11:15 Apixaban 2.5 Mg Tablet PO 2.5 mg BID TAWANDA Administration Protocol Aspirin 81 mg 05/17/23 09:00 05/17/23 08:45 Aspirin 81 Mg PO 81 mg DAILY TAWANDA Administration Atorvastatin Calcium 40 mg 05/16/23 21:00 05/16/23 20:49 Atorvastatin 40 Mg Tab PO 40 mg HS TAWANDA Administration Benzonatate 100 mg 05/16/23 20:33 Benzonatate 100 Mg Cap PO TID PRN Cough Guaifenesin/Dextromethorphan 10 ml 05/16/23 18:28 Guaifenesin-Dm 100-10mg/5ml 10 Ml Cup PO Q6HR PRN Cough Diltiazem HCl 125 mg/ Sodium 125 mls @ 2.5 mls/hr 05/16/23 16:15 05/16/23 16:21 Chloride IV 2.5 mg/hr .Q24H TAWANDA 2.5 mls/hr Administration 2.5 MG/HR Metoprolol Tartrate 50 mg 05/17/23 09:00 05/17/23 11:16 Metoprolol Tartrate 50 Mg Tab PO 50 mg BID TAWANDA Administration Naloxone HCl 0.2 mg 05/16/23 20:32 Naloxone 0.4 Mg/Ml 1 Ml Vial IV Q2M PRN Opioid Reversal Tamsulosin HCl 0.4 mg 05/16/23 21:00 05/16/23 20:49 Tamsulosin 0.4 Mg Cap.Er.24h PO 0.4 mg BID TAWANDA Administration 05/17/23 04:52 05/17/23 04:52
[2023-05-17] MEDS: guaiFENesin-DM 100-10MG/5ML 10 ML CUP PO PRN (17:07)
[2023-05-17] MEDS: ATORVASTATIN 40 MG TAB PO SCH (19:59)
[2023-05-17] MEDS: TAMSULOSIN 0.4 MG CAP.ER.24H PO SCH (19:59)
[2023-05-18 05:04] VITALS: RESP 18
[2023-05-18] MEDS: IPRATROPIUM-ALBUTEROL 3 ML NEB INHALATION SCH ×2 (07:43→11:26)
[2023-05-18] MEDS: METOPROLOL TARTRATE 50 MG TAB PO SCH (08:06)
[2023-05-18] MEDS: ASPIRIN 81 MG PO SCH (08:06)
[2023-05-18] MEDS: APIXABAN 2.5 MG TABLET PO SCH (08:06)
[2023-05-18] MEDS: TAMSULOSIN 0.4 MG CAP.ER.24H PO SCH (08:06)
[2023-05-18 08:17] VITALS: TEMP 97.6
[2023-05-18] MEDS: guaiFENesin-DM 100-10MG/5ML 10 ML CUP PO PRN (10:07)
--- NOTE | 2023-05-18 11:19 | P.DS ---
Providers Date of admission: 05/16/23 18:02 Expected date of discharge: 05/18/23 Attending physician: Azalea Orourke DO Consults: 05/16/23 18:01 Consult Physician Urgent Consulting Provider: [facility] Consult Reason/Comments: new onset afib Do you want consulting provider notified?: Yes Primary care physician: [facility] Course: Discharge Diagnosis: Atrial fibrillation with rapid ventricular response, now rate controlled NSTEMI, type 2 History of CAD Systolic cardiomyopathy Chronic bronchitis History of hypertension BPH Hospital Course: 82-year-old male presents as a transfer from [facility]. He has a history of coronary artery disease with cabg x3 and one stent, hypertension. He was having a cough without chest pain. This has been persistent since he had covid a few months ago. Went into his pcp clinic today and they transferred him to the hospital due to elevated heart rate. Patient found to be in A. fib with RVR which is new onset. He also has a left bundle-branch block however this was present March 2021. Viral panel was done at [facility] was performed and was negative. Laboratory studies demonstrated a troponin of 0.029 and a BNP of 7610. Patient transferred to our facility on a Cardizem and heparin drip as he does follow with cardiology at our facility. Currently rate controlled. Laboratory workup unremarkable except for troponin elevated to 0.039. Was on Cardizem drip. Now converted to oral metoprolol. Cardiology is consulted. Echocardiogram showed severe LV dysfunction with LVEF of 25-30%. Lisinopril was started however held due to low blood pressures. Patient to follow-up with cardiology and PCP, restart KATERYNA inhibitor outpatient. Patient seen and examined at bedside. Vital signs reviewed and stable. General: nontoxic, no distress, appears at stated age Derm: warm, dry Head: atraumatic, normocephalic, symmetric Eyes: EOMI, no lid lag, anicteric sclera Mouth: no lip lesion, mucus membranes moist Cardiovascular: S1S2 irregular, no murmur Lungs: CTA bilateral, no rhonchi, no rales , no accessory muscle use Abdominal: soft, nontender to palpation, no guarding, no appreciable organomegaly Ext: no gross muscle atrophy, no edema, no contractures Neuro: CN II-XI grossly intact, no focal neuro deficits Psych: Alert, oriented, appropriate affect A total of 33 minutes of time were spent preparing this complex discharge summary. Patient was discharged on 05/18/23 at 1108 . Patient Condition at Discharge: Stable Plan - Discharge Summary Discharge Rx Participant: Yes New Discharge Prescriptions: New Apixaban [Eliquis] 2.5 mg PO BID #90 tab lisinopriL 2.5 mg PO DAILY #30 tablet Metoprolol Tartrate [Lopressor] 50 mg PO BID #90 tab guaiFENesin-DM 100-10MG/5ML [Robitussin DM] 10 ml PO Q6HR PRN #90 ml PRN Reason: Cough Continue Atorvastatin [Lipitor] 40 mg PO HS Benzonatate [Tessalon Perles] 100 mg PO TID PRN PRN Reason: Cough Aspirin [Seba Dalkai Aspirin EC] 81 mg PO DAILY Tamsulosin [Flomax] 0.4 mg PO BID Discontinued Isosorbide Mononitrate [Isosorbide Mononitrate ER] 30 mg PO DAILY lisinopriL 2.5 mg PO DAILY Discharge Medication List Aspirin [Seba Dalkai Aspirin EC] 81 mg PO DAILY 07/16/22 [History] Atorvastatin [Lipitor] 40 mg PO HS 07/16/22 [History] Tamsulosin [Flomax] 0.4 mg PO BID 07/16/22 [History] Benzonatate [Tessalon Perles] 100 mg PO TID PRN 05/16/23 [History] Apixaban [Eliquis] 2.5 mg PO BID #90 tab 05/18/23 [Rx] Metoprolol Tartrate [Lopressor] 50 mg PO BID #90 tab 05/18/23 [Rx] guaiFENesin-DM 100-10MG/5ML [Robitussin DM] 10 ml PO Q6HR PRN #90 ml 05/18/23 [Rx] lisinopriL 2.5 mg PO DAILY #30 tablet 05/18/23 [Rx] Follow up Appointment(s)/Referral(s): Porter Arambula MD [STAFF PHYSICIAN] - 1 Week Joseph Gabriel DO [Primary Care Provider] - 1-2 days Adebayo Fulton MD [STAFF PHYSICIAN] - 1 Week Patient Instructions/Handouts: Heart Failure (DC), A-fib (Atrial Fibrillation) (DC) Activity/Diet/Wound Care/Special Instructions: Please see your PCP and cardiology. Wait to see your deicer inspector pneumatic or PCP before starting lisinopril as it may reduce your BP further. Discharge Disposition: HOME SELF-CARE
[2023-05-18 11:49] VITALS: BP 104/56; PULSE 76
--- NOTE | 2023-05-18 14:04 | P.PN ---
Subjective Progress Note Date: 05/18/23 The patient is an 82-year-old male who presented to the hospital with worsening shortness of breath. He was found to be in A. fib with RVR, which is new to the patient. Patient has remained rate controlled after starting low-dose beta pablo. Echocardiogram has revealed severely reduced LV function at 25-30%. Patient was interviewed and examined resting comfortably in bed. He states his breathing has significantly improved. He denies any current chest pain, dizziness, or lightheadedness. GENERAL: Well-appearing, well-nourished and in no acute distress. NECK: Supple without JVD or thyromegaly. LUNGS: Breath sounds clear to auscultation bilaterally. Respiration equal and unlabored. Fine crackles noted in the bases. HEART: Irregular rate and rhythm without murmurs, rubs or gallops. S1 and S2 heard. EXTREMITIES: Normal range of motion, no edema. No clubbing or cyanosis. Peripheral pulses intact and strong. TELEMETRY: Persistent atrial fibrillation IMPRESSION: New onset A. fib with RVR Left bundle branch block History of coronary artery disease with prior CABG Cardiomyopathy Upper respiratory infection PLAN: No plans for KATERYNA inhibitor or spironolactone at this time to avoid hypotension Outpatient evaluation for possible pacemaker implantation Patient may be discharged from the cardiac standpoint I am dictating on behalf of Dr Porter Arambula's history/physical and assessment/plan. Objective - Vital Signs Vital signs: Vital Signs Temp 97.6 F 05/18/23 08:00 Pulse 76 05/18/23 11:37 Resp 18 05/18/23 11:24 BP 104/56 05/18/23 11:24 Pulse Ox 93 L 05/18/23 11:24 FiO2 Intake & Output 05/17/23 05/18/23 05/18/23 18:59 06:59 18:59 Intake Total 0 240 Balance 0 240 Weight 58.967 kg Intake: Oral 0 240 Other: Voiding Method Toilet Toilet # Voids 1 - Labs CBC & Chem 7: 05/17/23 04:52 05/17/23 04:52
== END 2023-05-18 12:46 | disposition home or self-care (01) | DRG 282 ==
LOC: EC 16:04 → 3SCARD 18:02 → OBSVTOIN 18:02 → 3SCARD 18:46 → UNDODISOB 05-18 12:46
PROVIDERS: ADMIT Internal Medicine; ATTEND Internal Medicine
DX: I48.19 Other persistent atrial fibrillation (principal); I21.A1 Myocardial infarction type 2; I42.8 Other cardiomyopathies; I48.92 Unspecified atrial flutter; I45.2 Bifascicular block; I27.20 Pulmonary hypertension, unspecified; I25.10 Atherosclerotic heart disease of native coronary artery without angina pectoris; I10 Essential (primary) hypertension; E78.5 Hyperlipidemia, unspecified; I08.3 Combined rheumatic disorders of mitral, aortic and tricuspid valves; J42 Unspecified chronic bronchitis; G62.9 Polyneuropathy, unspecified; N40.0 Benign prostatic hyperplasia without lower urinary tract symptoms; Z11.52 Encounter for screening for COVID-19; Z79.82 Long term (current) use of aspirin; Z79.899 Other long term (current) drug therapy; Z86.16 Personal history of COVID-19; Z87.891 Personal history of nicotine dependence; Z95.1 Presence of aortocoronary bypass graft; Z95.5 Presence of coronary angioplasty implant and graft; Z96.653 Presence of artificial knee joint, bilateral
CPT/HCPCS: 36415; 80048; 80053; 83735; 84484; 85025; 85610; 85730; 87636; 93005; 93306; 94640; 96365; 96366; 96368; 99291

== ENCOUNTER 2023-06-20 14:08 | Inpatient (IN) | payer MEDICARE ==
[2023-06-20 14:47] LABS: Basophils % (A) 0 %; Eosinophils # (A) 0.2 k/uL (0-0.7); Eosinophils % (A) 3 %; HCT 41.7 % (39.0-53.0); HGB 13.6 gm/dL (13.0-17.5); Lymphocytes # (A) 1.5 k/uL (1.0-4.8); Lymphocytes % (A) 24 %; MCHC 32.7 g/dL (31.0-37.0); Mean Platelet Volume 7.3; Monocytes # (A) 0.3 k/uL (0-1.0); Monocytes % (A) 6 %; Neutrophils % (A) 66 %; Platelet Count 219 k/uL (150-450); RBC 4.39 m/uL (4.30-5.90); RDW 13.1 % (11.5-15.5); WBC 6.1 k/uL (3.8-10.6)
--- NOTE | 2023-06-20 15:02 | XR ---
EXAMINATION TYPE: XR chest 2V DATE OF EXAM: 06/20/2023 COMPARISON: NONE HISTORY: Shortness of breath TECHNIQUE: Frontal and lateral views of the chest are obtained. FINDINGS: Scattered senescent parenchymal changes noted. Hyperinflation compatible with COPD. Left basilar infiltrate and/or atelectasis and small effusion. Correlate clinically. Heart size is stable. Mediastinal structures are stable and grossly unremarkable. No evidence for hilar prominence. Degenerative changes dorsal spine. IMPRESSION: 1. Left basilar infiltrate and/or atelectasis and small effusion. Correlate clinically.
[2023-06-20 15:06] LABS: ALT 23 U/L (4-49); AST 45 U/L (17-59); African American GFR (CKD) 66 (>60 ml/min/1.73 sqM); Alkaline Phosphatase 97 U/L (38-126); Anion Gap 10 mmol/L; Blood Urea Nitrogen 21 mg/dL (9-20); Calcium 9.1 mg/dL (8.4-10.2); Carbon Dioxide 21 mmol/L (22-30); Chloride 107 mmol/L (98-107); Glucose 118 mg/dL (74-99); Magnesium 1.9 mg/dL (1.6-2.3); Non-African American GFR(CKD) 57 (>60 ml/min/1.73 sqM); Sodium 138 mmol/L (137-145); Total Bilirubin 1.5 mg/dL (0.2-1.3); Total Protein 6.8 g/dL (6.3-8.2)
--- NOTE | 2023-06-20 15:08 | ED ---
General Adult HPI - General Chief complaint: Shortness of Breath Stated complaint: ELOY Time Seen by Provider: 06/20/23 14:24 Source: patient, RN notes reviewed Mode of arrival: ambulatory Limitations: no limitations - History of Present Illness Initial comments: 82-year-old male presents emergency department from PCPs office for concerns of CHF. Patient was found to have new onset atrial fibrillation and recent admission states he been having worsening cough, shortness of breath, orthopnea type symptoms. He does have leg swelling he is not on any diuretics. He is on current Eliquis. Patient states he had an x-ray showing fluid buildup. Patient states that he just does not feel well feels weak. - Related Data Home Medications Medication Instructions Recorded Confirmed Aspirin [[place] Aspirin EC] 81 mg PO DAILY 07/16/22 05/16/23 Atorvastatin [Lipitor] 40 mg PO HS 07/16/22 05/16/23 Tamsulosin [Flomax] 0.4 mg PO BID 07/16/22 05/16/23 Benzonatate [Tessalon Perles] 100 mg PO TID PRN 05/16/23 05/16/23 Previous Rx's Medication Instructions Recorded Apixaban [Eliquis] 2.5 mg PO BID #90 tab 05/18/23 Metoprolol Tartrate [Lopressor] 50 mg PO BID #90 tab 05/18/23 guaiFENesin-DM 100-10MG/5ML 10 ml PO Q6HR PRN #90 ml 05/18/23 [Robitussin DM] lisinopriL 2.5 mg PO DAILY #30 tablet 05/18/23 Allergies Allergy/AdvReac Type Severity Reaction Status Date / Time No Known Allergies Allergy Verified 06/20/23 14:12 Review of Systems ROS Statement: Those systems with pertinent positive or pertinent negative responses have been documented in the HPI. ROS Other: All systems not noted in ROS Statement are negative. Past Medical History Past Medical History: Coronary Artery Disease (CAD), Hyperlipidemia, Hypertensi on, Prostate Disorder, Vascular Disorder Additional Past Medical History / Comment(s): Neuropathy both hands and feet. back pain History of Any Multi-Drug Resistant Organisms: None Reported Past Surgical History: Back Surgery, Coronary Bypass/CABG, Heart Catheterization With Stent, Orthopedic Surgery Additional Past Surgical History / Comment(s): cervical surgery for numbness, bilateral knee replacement, bilateral Rotator cuff surgery, rt carotid surgery, CABG -1995, stent 2019 Past Anesthesia/Blood Transfusion Reactions: No Reported Reaction Date of Last Stent Placement:: 2019 Past Psychological History: No Psychological Hx Reported Smoking Status: Former smoker Past Alcohol Use History: Rare Past Drug Use History: None Reported - Past Family History Father Family Medical History: No Reported History General Exam Limitations: no limitations General appearance: alert, in no apparent distress Head exam: Present: atraumatic, normocephalic, normal inspection Respiratory exam: Absent: respiratory distress, wheezes, rales, rhonchi, stridor Cardiovascular Exam: Present: irregular rhythm, normal heart sounds. Absent: regular rate, normal rhythm, systolic murmur, diastolic murmur, rubs, gallop, clicks Extremities exam: Present: pedal edema Neurological exam: Present: alert, oriented X3 Course Vital Signs 06/20/23 06/20/23 06/20/23 14:09 15:19 15:23 Temperature 98.3 F Pulse Rate 95 99 Respiratory 24 16 16 Rate Blood Pressure 117/79 122/81 O2 Sat by Pulse 92 L 97 Oximetry EKG Findings - EKG Comments: EKG Findings:: EKG performed at 14: 19 A-fib rate of 98 QRS 172 Qt/ QTc 417/473 - EKG Results: EKG: interpreted by YUDITH Medical Decision Making - Medical Decision Making Was pt. sent in by a medical professional or institution (, PA, AUDITING CLERK, urgent care, hospital, or penitentiary...) When possible be specific @ -[PCP Did you speak to anyone other than the patient for history (EMS, parent, family, police, friend...)? What history was obtained from this source @ -No Did you review nursing and triage notes (agree or disagree)? Why? @ -I reviewed and agree with nursing and triage notes Were old charts reviewed (outside hosp., previous admission, EMS record, old EKG, old radiological studies, urgent care reports/EKG's, penitentiary records)? Report findings @ -[Reviewed recent admission laboratory studies and echocardiogram Differential Diagnosis (chest pain, altered mental status, abdominal pain women, abdominal pain men, vaginal bleeding, weakness, fever, dyspnea, syncope, headache, dizziness, GI bleed, back pain, seizure, CVA, palpatations, mental health, musculoskeletal)? @ -Differential Dyspnea: Coronary syndrome, arrhythmia, tamponade, asthma, COPD, pulmonary embolism, pneumonia, pneumothorax, pulmonary effusion, anaphylaxis, diabetic ketoacidosis, flailed chest, pulmonary contusion, diaphragmatic rupture, anemia, neuromuscular, this is not meant to be an all-inclusive list. EKG interpreted by me (3pts min.). @ -[As above X-rays interpreted by me (1pt min.). @ -None done CT interpreted by me (1pt min.). @ -None done U/S interpreted by me (1pt. min.). @ -None done What testing was considered but not performed or refused? (CT, X-rays, U/S, labs)? Why? @ -None What meds were considered but not given or refused? Why? @ -None Did you discuss the management of the patient with other professionals (professionals i.e. , PA, AUDITING CLERK, lab, RT, psych nurse, social work job titles, assignment desk assistant, teacher, legal compliance officer, case management director)? Give summary @ -[[facility] for admission for CHF exacerbation Was smoking cessation discussed for >3mins.? @ -No Was critical care preformed (if so, how long)? @ -No Were there social determinants of health that impacted care today? How? (Homelessness, low income, unemployed, alcoholism, drug addiction, transportation, low edu. Level, literacy, decrease access to med. care, snf, r ehab)? @ -No Was there de-escalation of care discussed even if they declined (Discuss DNR or withdrawal of care, Hospice)? DNR status @ -No What co-morbidities impacted this encounter? (DM, HTN, Smoking, COPD, CAD, Cancer, CVA, ARF, Chemo, Hep., AIDS, mental health diagnosis, sleep apnea, morbid obesity)? @ -None Was patient admitted / discharged? Hospital course, mention meds given and route, prescriptions, significant lab abnormalities, going to OR and other pertinent info. @ -[The patient has acute CHF exacerbation, pulmonary edema and pleural effusion was given Lasix will be admitted for further diuresis Undiagnosed new problem with uncertain prognosis? @ -No Drug Therapy requiring intensive monitoring for toxicity (Heparin, Nitro, Insulin, Cardizem)? @ -No Were any procedures done? @ -No Diagnosis/symptom? @ -[CHF exacerbation Acute, or Chronic, or Acute on Chronic? @ -Acute Uncomplicated (without systemic symptoms) or Complicated (systemic symptoms)? @ -[Complicated Side effects of treatment? @ -[No Exacerbation, Progression, or Severe Exacerbation? @ -No Poses a threat to life or bodily function? How? (Chest pain, [place], [place], pneumonia, PE, COPD, DKA, ARF, appy, cholecystitis, CVA, Diverticulitis, Homicidal, Suicidal, threat to staff... and all critical care pts) @ -Yes CHF - Lab Data Result diagrams: 06/20/23 14:42 06/20/23 14:42 Lab Results 06/20/23 06/20/23 06/20/23 Range/Units 14:42 14:42 14:42 WBC 6.1 (3.8-10.6) k/uL RBC 4.39 (4.30-5.90) m/uL Hgb 13.6 (13.0-17.5) gm/dL Hct 41.7 (39.0-53.0) % MCV 95.0 (80.0-100.0) fL MCH 31.0 (25.0-35.0) pg MCHC 32.7 (31.0-37.0) g/dL RDW 13.1 (11.5-15.5) % Plt Count 219 (150-450) k/uL MPV 7.3 Neutrophils % 66 % Lymphocytes % 24 % Monocytes % 6 % Eosinophils % 3 % Basophils % 0 % Neutrophils # 4.0 (1.3-7.7) k/uL Lymphocytes # 1.5 (1.0-4.8) k/uL Monocytes # 0.3 (0-1.0) k/uL Eosinophils # 0.2 (0-0.7) k/uL Basophils # 0.0 (0-0.2) k/uL PT 12.7 H (10.0-12.5) sec INR 1.2 H (<1.2) APTT 24.9 (22.0-30.0) sec Sodium 138 (137-145) mmol/L Potassium 5.1 (3.5-5.1) mmol/L Chloride 107 (98-107) mmol/L Carbon Dioxide 21 L (22-30) mmol/L Anion Gap 10 mmol/L BUN 21 H (9-20) mg/dL Creatinine 1.18 (0.66-1.25) mg/dL Est GFR (CKD-EPI)AfAm 66 (>60 ml/min/1.73 sqM) Est GFR (CKD-EPI)NonAf 57 (>60 ml/min/1.73 sqM) Glucose 118 H (74-99) mg/dL Calcium 9.1 (8.4-10.2) mg/dL Magnesium 1.9 (1.6-2.3) mg/dL Total Bilirubin 1.5 H (0.2-1.3) mg/dL AST 45 (17-59) U/L ALT 23 (4-49) U/L Alkaline Phosphatase 97 (38-126) U/L Troponin I (0.000-0.034) ng/mL NT-Pro-B Natriuret Pep 23870 pg/mL Total Protein 6.8 (6.3-8.2) g/dL Albumin 4.0 (3.5-5.0) g/dL 06/20/23 Range/Units 14:42 WBC (3.8-10.6) k/uL RBC (4.30-5.90) m/uL Hgb (13.0-17.5) gm/dL Hct (39.0-53.0) % MCV (80.0-100.0) fL MCH (25.0-35.0) pg MCHC (31.0-37.0) g/dL RDW (11.5-15.5) % Plt Count (150-450) k/uL MPV Neutrophils % % Lymphocytes % % Monocytes % % Eosinophils % % Basophils % % Neutrophils # (1.3-7.7) k/uL Lymphocytes # (1.0-4.8) k/uL Monocytes # (0-1.0) k/uL Eosinophils # (0-0.7) k/uL Basophils # (0-0.2) k/uL PT (10.0-12.5) sec INR (<1.2) APTT (22.0-30.0) sec Sodium (137-145) mmol/L Potassium (3.5-5.1) mmol/L Chloride (98-107) mmol/L Carbon Dioxide (22-30) mmol/L Anion Gap mmol/L BUN (9-20) mg/dL Creatinine (0.66-1.25) mg/dL Est GFR (CKD-EPI)AfAm (>60 ml/min/1.73 sqM) Est GFR (CKD-EPI)NonAf (>60 ml/min/1.73 sqM) Glucose (74-99) mg/dL Calcium (8.4-10.2) mg/dL Magnesium (1.6-2.3) mg/dL Total Bilirubin (0.2-1.3) mg/dL AST (17-59) U/L ALT (4-49) U/L Alkaline Phosphatase (38-126) U/L Troponin I 0.015 (0.000-0.034) ng/mL NT-Pro-B Natriuret Pep pg/mL Total Protein (6.3-8.2) g/dL Albumin (3.5-5.0) g/dL Disposition Clinical Impression: Afib, CHF exacerbation Disposition: ADMITTED IP TO THIS HOSP Condition: Fair Referrals: Joseph Gabriel DO [Primary Care Provider] - 1-2 days Time of Disposition: 15:46
[2023-06-20 15:10] LABS: Potassium 5.1 mmol/L (3.5-5.1)
[2023-06-20 15:12] LABS: INR 1.2 (<1.2)
[2023-06-20 15:13] LABS: NT-Pro-B-Type Natriuretic Pept 12800 pg/mL; Partial Thromboplastin Time 24.9 sec (22.0-30.0); Prothrombin Time 12.7 sec (10.0-12.5)
[2023-06-20] MEDS: FUROSEMIDE 10 MG/ML 4 ML VIAL IV STA (16:17)
--- NOTE | 2023-06-20 16:36 | P.HPIM ---
History of Present Illness H&P Date: 06/20/23 History of Presenting Illness: Patient is a very pleasant 82-year-old male with a past medical history of CAD status post CABG x 3, recently diagnosed atrial fibrillation, ischemic cardiomyopathy with HFrEF 25-30%, previously known left bundle branch block, hypertension, hyperlipidemia, COPD and moderate pulmonary hypertension, and BPH. Pt presented to the emergency department from PCPs office secondary to concerns of CHF exacerbation. Patient presented to his PCPs office today secondary to complaints of worsening nonproductive cough and shortness of breath progressively worsening over the past 2 weeks. He reports he has also experienced some dizziness/lightheadedness upon standing and some occasional chest tightness/pressure. He denies having any fevers, chills, changes in vision or hearing, diaphoresis, palpitations, nausea, vomiting, abdominal pain, or experiencing any increases and or changes in his chronic lower extremity edema. Patient reports he has been following outpatient with Dr. Aponte and they have been discussing AICD placement. He underwent full evaluation in the emergency department. Vital signs upon arrival show blood pressure 117/79, heart rate 95, respiratory rate 24, temp 98.3 F, SpO2 92% on room air. EKG comp leted showing atrial fibrillation with a left bundle branch block at 98 bpm. Chest x-ray completed showing a left basilar infiltrate and/or atelectasis and small pleural effusion along with hyperinflation compatible with COPD. Labs completed and reviewed. CBC unremarkable. BMP showing hypocarbia with bicarb of 21 otherwise unremarkable. Magnesium normal findings at 1.9. Liver profile showing elevated total bili of 1.5 otherwise normal findings. Troponin 0.015. proBNP 12,800. Patient given Lasix 40 mg IV push in the emergency department and admitted under services with consultation to cardiology. Review of systems: Pertinent positives and negatives as discussed in HPI, a complete review of systems was performed and all other systems are negative. Physical exam: Vital signs reviewed and stable. General: Nontoxic, no distress and appears stated age. Derm: Skin warm and dry, normal coloration for ethnicity. Head: Atraumatic, normocephalic and symmetric. Eyes: EOMs intact, no lid lag, and anicteric sclera Mouth: no lip lesions, mucus membranes moist Cardiovascular: irregularly irregular, systolic murmur, positive posterior tibial pulses bilaterally, and cap refill < 2 seconds. Lungs: Respirations even, regular, and unlabored on room air. Lungs diminished. No rales, rhonchi, or wheezes. No accessory muscle usage. Abdominal: soft, nontender to palpation, no guarding, no appreciable organomegaly Ext: ROM intact. No gross muscle atrophy, 2+ pitting bilateral lower extremity edema, no contractures Neuro: Speech clear, face symmetrical and CN II-XII grossly intact with no noted focal neuro deficits Psych: Alert and oriented to person, place, time, and situation. Appropriate and pleasant affect. Assessment and Plan of Care: Acute on chronic systolic heart failure with previously known EF of 25 to 30% Ischemic cardiomyopathy Chronic atrial fibrillation Left bundle branch block History of CAD status post CABG Hypertension Hyperlipidemia COPD Pulmonary hypertension -Cardiology consulted, appreciate recommendations -Telemetry monitoring -Troponin 0.015, we will trend troponins every 3 hours x 3 draws. -ProBNP 12,800 -Daily weights -Close monitoring of I's and O's -Cardiac diet with 1500 mL fluid restriction -Lasix 40 mg IVP every 12 hours. -Continue cardiac medication regimen with Eliquis 2.5 mg twice daily, atorvastatin 40 mg nightly, losartan 12.5 mg daily, and metoprolol 50 mg daily. -Continued close monitoring of electrolytes while diuresing. -Echocardiogram completed 05/16/2023, report reviewed showing severely impaired EF of 25 to 30% with moderate biatrial dilation, moderate right ventricular dilation and moderate pulmonary hypertension. Data and imaging reviewed: As stated above in HPI The patient is admitted with an anticipated greater than 2 midnight stay for evaluation of acute on chronic systolic heart failure exacerbation CODE STATUS: Full code DVT prophylaxis: Eliquis Anticipated discharge date: Clinical course to determine Anticipated discharge place: Clinical course to determine Patient was seen independently by Nurse Practitioner. This document was prepared using [employer] dictation software. Please allow for errors in client director while rare they do occur. I reviewed the documentation as provided by the FLOWER above, who is the original author of this note. I agree with the documented assessment and plan, with the following changes: none Past Medical History Past Medical History: Coronary Artery Disease (CAD), Hyperlipidemia, Hypertension, Prostate Disorder, Vascular Disorder Additional Past Medical History / Comment(s): Neuropathy both hands and feet. back pain History of Any Multi-Drug Resistant Organisms: None Reported Past Surgical History: Back Surgery, Coronary Bypass/CABG, Heart Catheterization With Stent, Orthopedic Surgery Additional Past Surgical History / Comment(s): cervical surgery for numbness, bilateral knee replacement, bilateral Rotator cuff surgery, rt carotid surgery, CABG -1995, stent 2019 Past Anesthesia/Blood Transfusion Reactions: No Reported Reaction Date of Last Stent Placement:: 2019 Past Psychological History: No Psychological Hx Reported Smoking Status: Former smoker Past Alcohol Use History: Rare Past Drug Use History: None Reported - Past Family History Father Family Medical History: No Reported History Medications and Allergies Home Medications Medication Instructions Recorded Confirmed Type Atorvastatin [Lipitor] 40 mg PO HS 07/16/22 06/20/23 History Tamsulosin [Flomax] 0.4 mg PO BID 07/16/22 06/20/23 History Benzonatate [Tessalon Perles] 100 mg PO TID PRN 05/16/23 06/20/23 History Apixaban [Eliquis] 2.5 mg PO BID #90 tab 05/18/23 06/20/23 Rx guaiFENesin-DM 100-10MG/5ML 10 ml PO Q6HR PRN #90 ml 05/18/23 06/20/23 Rx [Robitussin DM] Losartan [Cozaar] 12.5 mg PO DAILY 06/20/23 06/20/23 History Metoprolol Succinate [Toprol XL] 50 mg PO DAILY 06/20/23 06/20/23 History Allergies Allergy/AdvReac Type Severity Reaction Status Date / Time No Known Allergies Allergy Verified 06/20/23 16:26 Physical Exam Osteopathic Statement: *. No significant issues noted on an osteopathic structural exam other than those noted in the History and Physical/Consult. Vitals: Vital Signs Temp Pulse Resp BP Pulse Ox 06/20/23 16:15 80 19 119/77 95 06/20/23 15:23 16 06/20/23 15:19 99 16 122/81 97 06/20/23 14:09 98.3 F 95 24 117/79 92 L Intake and Output 06/20/23 06/20/23 06/20/23 06:59 14:59 22:59 Other: Weight 58.967 kg Results CBC & Chem 7: 06/21/23 08:56 06/21/23 08:56 Labs: Abnormal Lab Results - Last 24 Hours (Table) 06/20/23 06/20/23 Range/Units 14:42 14:42 PT 12.7 H (10.0-12.5) sec INR 1.2 H (<1.2) Carbon Dioxide 21 L (22-30) mmol/L BUN 21 H (9-20) mg/dL Glucose 118 H (74-99) mg/dL Total Bilirubin 1.5 H (0.2-1.3) mg/dL
[2023-06-20] MEDS: FUROSEMIDE 10 MG/ML 4 ML VIAL IV SCH (19:36)
[2023-06-20] MEDS: ATORVASTATIN 40 MG TAB PO SCH (19:36)
[2023-06-20] MEDS: TAMSULOSIN 0.4 MG CAP.ER.24H PO SCH (19:36)
[2023-06-20] MEDS: APIXABAN 2.5 MG TABLET PO SCH (19:36)
[2023-06-21] MEDS: METOPROLOL SUCCINATE (ER) 50 MG TAB.ER.24H PO SCH (07:51)
[2023-06-21] MEDS: LOSARTAN 25 MG TAB PO SCH (07:51)
[2023-06-21 09:52] LABS: MCH 31.2 pg (25.0-35.0); MCHC 33.2 g/dL (31.0-37.0); MCV 94.1 fL (80.0-100.0); Mean Platelet Volume 7.6; Platelet Count 213 k/uL (150-450); RBC 4.47 m/uL (4.30-5.90); WBC 6.6 k/uL (3.8-10.6)
[2023-06-21 10:14] LABS: ALT 21 U/L (4-49); AST 27 U/L (17-59); African American GFR (CKD) 58 (>60 ml/min/1.73 sqM); Albumin 3.7 g/dL (3.5-5.0); Alkaline Phosphatase 102 U/L (38-126); Anion Gap 5 mmol/L; Blood Urea Nitrogen 21 mg/dL (9-20); Calcium 9.3 mg/dL (8.4-10.2); Carbon Dioxide 29 mmol/L (22-30); Chloride 103 mmol/L (98-107); Glucose 183 mg/dL (74-99); Magnesium 1.8 mg/dL (1.6-2.3); Non-African American GFR(CKD) 51 (>60 ml/min/1.73 sqM); Potassium 4.1 mmol/L (3.5-5.1); Sodium 137 mmol/L (137-145); Total Bilirubin 1.7 mg/dL (0.2-1.3); Total Protein 6.2 g/dL (6.3-8.2)
--- NOTE | 2023-06-21 11:50 | P.PN ---
Subjective Progress Note Date: 06/21/23 Hospital course: Patient is a very pleasant 82-year-old male with a past medical history of CAD status post CABG x 3, recently diagnosed atrial fibrillation, ischemic cardiomyopathy with HFrEF 25-30%, previously known left bundle branch block, hypertension, hyperlipidemia, COPD and moderate pulmonary hypertension, and BPH. Pt presented to the emergency department from PCPs office on 06/20/2023 secondary to concerns of CHF exacerbation. Patient presented to his PCPs office originally secondary to complaints of worsening nonproductive cough and shortness of breath progressively worsening over the past 2 weeks. He reportd also experiencing some dizziness/lightheadedness upon standing and some occasional chest tightness/pressure. Patient reported he has been following outpatient with Dr. Aponte and they have been discussing AICD placement. He underwent full evaluation in the emergency department. Vital signs upon arrival show blood pressure 117/79, heart rate 95, respiratory rate 24, temp 98.3 F, SpO2 92% on room air. EKG completed showing atrial fibrillation with a left bundle branch block at 98 bpm. Chest x-ray completed showing a left basilar infiltrate and/or atelectasis and small pleural effusion along with hyperinflation compatible with COPD. Labs completed and reviewed. CBC unremarkable. BMP showing hypocarbia with bicarb of 21 otherwise unremarkable. Magnesium normal findings at 1.9. Liver profile showing elevated total bili of 1.5 otherwise normal findings. Troponin 0.015. proBNP 12,800. Patient given Lasix 40 mg IV push in the emergency department and admitted under our services with consultation to cardiology. Troponins trended overnight resulting at 0.015, 0.014, and 0.016. Physical exam: Vital signs reviewed and stable. General: Nontoxic, no distress and appears stated age. Derm: Skin warm and dry, normal coloration for ethnicity. Head: Atraumatic, normocephalic and symmetric. Eyes: EOMs intact, no lid lag, and anicteric sclera Mouth: no lip lesions, mucus membranes moist Cardiovascular: irregularly irregular, systolic murmur, positive posterior tibial pulses bilaterally, and cap refill < 2 seconds. Lungs: Respirations even, regular, and unlabored on room air. Lungs diminished. No rales, rhonchi, or wheezes. No accessory muscle usage. Abdominal: soft, nontender to palpation, no guarding, no appreciable organomegaly Ext: ROM intact. No gross muscle atrophy, 2+ pitting bilateral lower extremity edema, no contractures Neuro: Speech clear, face symmetrical and CN II-XII grossly intact with no noted focal neuro deficits Psych: Alert and oriented to person, place, time, and situation. Appropriate and pleasant affect. Assessment and Plan of Care: Acute on chronic systolic heart failure with previously known EF of 25 to 30% Acute respiratory failure with hypoxia, secondary to above Ischemic cardiomyopathy Chronic atrial fibrillation Left bundle branch block History of CAD status post CABG Hypertension Hyperlipidemia COPD Pulmonary hypertension -Cardiology consulted, appreciate recommendations -Telemetry monitoring -Troponins trended overnight resulting at 0.015, 0.014, and 0.016. -ProBNP 12,800 -Daily weights -Close monitoring of I's and O's. Documented urinary output over the past 24 hours is 3400 cc. -Cardiac diet with 1500 mL fluid restriction -Continue Lasix 40 mg IVP every 12 hours. -Continue cardiac medication regimen with Eliquis 2.5 mg twice daily, atorvastatin 40 mg nightly, losartan 12.5 mg daily, and metoprolol 50 mg daily. -Continued close monitoring of electrolytes while diuresing. -Echocardiogram completed 05/16/2023, report reviewed showing severely impaired EF of 25 to 30% with moderate biatrial dilation, moderate right ventricular dilation and moderate pulmonary hypertension. Data and imaging reviewed: Documented urinary output over the past 24 hours is 3400 cc. Vital signs reviewed. Blood pressure 107/69, heart rate 62, respiratory rate 17, temp 97.9 F, and SpO2 of 93% on 2 L. Troponins were trended throughout the night resulting at 0.015. 0.014, and 0.016. Morning labs reviewed. CBC remains unremarkable. BMP showing stable sodium of 137, potassium of 4.1, and slightly elevated renal function with BUN of 21, creatinine 1.31, GFR 51. Blood glucose was slightly elevated at 183 this morning. Magnesium normal findings 1.8. Total bili remains elevated but stable at 1.7. CODE STATUS: Full code DVT prophylaxis: Eliquis Anticipated discharge date: Clinical course to determine Anticipated discharge place: Clinical course to determine Patient was seen independently by Nurse Practitioner. This document was prepared using [employer] dictation software. Please allow for errors in coffee maker while rare they do occur. I reviewed the documentation as provided by the FLOWER above, who is the original author of this note. I agree with the documented assessment and plan, with the following changes: none Objective - Vital Signs Vital signs: Vital Signs Temp 98.1 F 06/20/23 20:00 Pulse 97 06/21/23 04:00 Resp 16 06/21/23 04:00 BP 115/64 06/21/23 04:00 Pulse Ox 94 L 06/21/23 07:45 FiO2 Intake & Output 06/20/23 06/21/23 06/21/23 18:59 06:59 18:59 Intake Total 540 Output Total 3400 Balance -2860 Weight 58.967 kg 60.1 kg Intake: Oral 540 Output: Urine 3400 Other: Voiding Method Urinal Urinal - Labs CBC & Chem 7: 06/23/23 06:04 06/23/23 06:04 Labs: Abnormal Lab Results - Last 24 Hours (Table) 06/20/23 06/20/23 Range/Units 14:42 14:42 PT 12.7 H (10.0-12.5) sec INR 1.2 H (<1.2) Carbon Dioxide 21 L (22-30) mmol/L BUN 21 H (9-20) mg/dL Glucose 118 H (74-99) mg/dL Total Bilirubin 1.5 H (0.2-1.3) mg/dL
[2023-06-21] MEDS: SPIRONOLACTONE 25 MG TAB PO SCH (12:07)
[2023-06-21 13:00] VITALS: BMI 22.7
--- NOTE | 2023-06-21 14:00 | P.CRDCN ---
History of Present Illness History of present illness: HISTORY OF PRESENTING ILLNESS This is a pleasant 82-year-old male past medical history significant for coronary artery disease status post bypass grafting and PCI of the [place] vessel, ischemic cardiomyopathy, persistent atrial fibrillation, chronic systolic heart failure ejection fraction 20-25%, left bundle branch block, hypertension and dyslipidemia. He follows in the office with Dr. Fulton. We have been asked to see in consultation for shortness of breath. He was here in May and found to be new onset afib with EF 25-30. He saw Dr Arambula and was recommended for BiV ICD placement which is scheduled for August 04. He presented to the hospital with symptoms of shortness of breath. He is receiving IV diuretics. Initial output is 3.4 L. He is seen walking up and down the oliver. Breathing has improved. He has no chest pain, dizziness or palpitations. DIAGNOSTICS EKG reveals atrial fibrillation with left bundle branch block heart rate of 98. Telemetry tracings indicate atrial fib. Chest xray left basilar infiltrate and small effusion. Laboratory reviewed, CBC unremarkable, sodium 137, potassium 4.1, creatinine 1.31, magnesium 1.8, troponins negative 3, NT proBNP 12,800. Current cardiac medications include liquids 2.5 mg twice a day, atorvastatin 40 mg at bedtime, losartan 12.5 mg daily and Toprol 50 mg daily. REVIEW OF SYSTEMS At the time of my exam: CONSTITUTIONAL: Denies fever or chills. CARDIOVASCULAR: Denies chest pain, shortness of breath, orthopnea, PND or palpitations. RESPIRATORY: Denies cough. GASTROINTESTINAL: Denies abdominal pain, diarrhea, constipation, nausea or vomiting. MUSCULOSKELETAL: Denies myalgias. NEUROLOGIC: Denies numbness, tingling, headache or weakness. ENDOCRINE: Denies fatigue, weight change, polydipsia or polyurina. GENITOURINARY: Denies burning, hematuria or urgency with micturation. HEMATOLOGIC: Denies history of anemia or bleeding. PHYSICAL EXAMINATION Blood pressure of 107/69 heart rate 62 afebrile and maintaining oxygen saturation on nasal cannula. CONSTITUTIONAL: No apparent distress. HEENT: Head is normocephalic. Pupils are equal, round. Sclerae anicteric. Mucous membranes of the mouth are moist. No JVD. No carotid bruit. CHEST EXAMINATION: Lungs are clear to auscultation. No chest wall tenderness is noted on palpation or with deep breathing. HEART EXAMINATION: Irregular rate and rhythm. S1, S2 heard. No murmurs, gallops or rub. ABDOMEN: Soft, nontender. EXTREMITIES: 2+ peripheral pulses, no lower extremity edema and no calf tenderness. NEUROLOGIC EXAMINATION: Patient is awake, alert and oriented x3. ASSESSMENT Acute on chronic systolic heart failure, EF 20-25% Persistent atrial fibrillation, controlled rate Hypertension Coronary artery disease Hyperlipidemia PLAN Continue IV diuresis for another 24 hours. Strict I&O documentation. Daily weights. BMP in the morning. Add Aldactone 12.5 mg daily. Will increase to 25 as tolerated. Further recommendations to follow, thank you kindly for this consultation. Nurse Practitioner note has been reviewed, I agree with a documented findings and plan of care. Patient was seen and examined. Past Medical History Past Medical History: Coronary Artery Disease (CAD), Hyperlipidemia, Hypert ension, Prostate Disorder, Vascular Disorder Additional Past Medical History / Comment(s): Neuropathy both hands and feet. back pain History of Any Multi-Drug Resistant Organisms: None Reported Past Surgical History: Back Surgery, Coronary Bypass/CABG, Heart Catheterization With Stent, Orthopedic Surgery Additional Past Surgical History / Comment(s): cervical surgery for numbness, bilateral knee replacement, bilateral Rotator cuff surgery, rt carotid surgery, CABG -1995, stent 2019 Past Anesthesia/Blood Transfusion Reactions: No Reported Reaction Date of Last Stent Placement:: 2019 Past Psychological History: No Psychological Hx Reported Smoking Status: Former smoker Past Alcohol Use History: Rare Past Drug Use History: None Reported - Past Family History Father Family Medical History: No Reported History Medications and Allergies Home Medications Medication Instructions Recorded Confirmed Type Atorvastatin [Lipitor] 40 mg PO HS 07/16/22 06/20/23 History Tamsulosin [Flomax] 0.4 mg PO BID 07/16/22 06/20/23 History Benzonatate [Tessalon Perles] 100 mg PO TID PRN 05/16/23 06/20/23 History Apixaban [Eliquis] 2.5 mg PO BID #90 tab 05/18/23 06/20/23 Rx guaiFENesin-DM 100-10MG/5ML 10 ml PO Q6HR PRN #90 ml 05/18/23 06/20/23 Rx [Robitussin DM] Losartan [Cozaar] 12.5 mg PO DAILY 06/20/23 06/20/23 History Metoprolol Succinate [Toprol XL] 50 mg PO DAILY 06/20/23 06/20/23 History Allergies Allergy/AdvReac Type Severity Reaction Status Date / Time No Known Allergies Allergy Verified 06/20/23 16:26 Physical Exam Vitals: Vital Signs Temp Pulse Pulse Pulse Pulse Pulse Resp 06/21/23 11:31 97.9 F 62 17 06/21/23 08:00 97.6 F 63 16 06/21/23 07:45 06/21/23 04:00 97 16 06/20/23 23:27 75 16 06/20/23 20:00 98.1 F 58 L 16 06/20/23 18:04 65 63 71 06/20/23 17:00 97.2 F L 92 16 06/20/23 16:15 80 19 06/20/23 15:23 16 06/20/23 15:19 99 16 06/20/23 14:09 98.3 F 95 24 BP BP BP BP BP Pulse Ox 06/21/23 11:31 107/69 93 L 06/21/23 08:00 121/76 98 06/21/23 07:45 94 L 06/21/23 04:00 115/64 94 L 06/20/23 23:27 142/80 97 06/20/23 20:00 96/65 91 L 06/20/23 18:04 100/65 119/68 110/60 06/20/23 17:00 128/84 98 06/20/23 16:15 119/77 95 06/20/23 15:23 06/20/23 15:19 122/81 97 06/20/23 14:09 117/79 92 L Intake and Output 06/20/23 06/21/23 06/21/23 22:59 06:59 14:59 Intake Total 540 0 Output Total 7515 1325 200 Balance -8564 -0133 -200 Intake: Oral 540 0 Output: Urine 5 1325 200 Other: Voiding Method Urinal Urinal Urinal Weight 58.967 kg 60.1 kg Results 06/21/23 08:56 06/21/23 08:56 Cardiac Enzymes 06/20/23 06/20/23 06/20/23 Range/Units 14:42 14:42 18:29 AST 45 (17-59) U/L Troponin I 0.015 0.014 (0.000-0.034) ng/mL 06/20/23 06/21/23 Range/Units 21:16 08:56 AST 27 (17-59) U/L Troponin I 0.016 (0.000-0.034) ng/mL Coagulation 06/20/23 Range/Units 14:42 PT 12.7 H (10.0-12.5) sec APTT 24.9 (22.0-30.0) sec CBC 06/20/23 06/21/23 Range/Units 14:42 08:56 WBC 6.1 6.6 (3.8-10.6) k/uL RBC 4.39 4.47 (4.30-5.90) m/uL Hgb 13.6 14.0 (13.0-17.5) gm/dL Hct 41.7 42.0 (39.0-53.0) % Plt Count 219 213 (150-450) k/uL Comprehensive Metabolic Panel 06/20/23 06/21/23 Range/Units 14:42 08:56 Sodium 138 137 (137-145) mmol/L Potassium 5.1 4.1 (3.5-5.1) mmol/L Chloride 107 103 (98-107) mmol/L Carbon Dioxide 21 L 29 (22-30) mmol/L BUN 21 H 21 H (9-20) mg/dL Creatinine 1.18 1.31 H (0.66-1.25) mg/dL Glucose 118 H 183 H (74-99) mg/dL Calcium 9.1 9.3 (8.4-10.2) mg/dL AST 45 27 (17-59) U/L ALT 23 21 (4-49) U/L Alkaline Phosphatase 97 102 (38-126) U/L Total Protein 6.8 6.2 L (6.3-8.2) g/dL Albumin 4.0 3.7 (3.5-5.0) g/dL Current Medications Generic Name Dose Route Start Last Admin Trade Name Freq PRN Reason Stop Dose Admin Apixaban 2.5 mg 06/20/23 21:00 06/21/23 07:50 Apixaban 2.5 Mg Tablet PO 2.5 mg BID TAWANDA Administration Protocol Atorvastatin Calcium 40 mg 06/20/23 21:00 06/20/23 19:36 Atorvastatin 40 Mg Tab PO 40 mg HS TAWANDA Administration Furosemide 40 mg 06/20/23 21:00 06/21/23 07:51 Furosemide 10 Mg/Ml 4 Ml Vial IV 40 mg Q12HR TAWANDA Administration Losartan Potassium 12.5 mg 06/21/23 09:00 06/21/23 07:51 Losartan 25 Mg Tab PO 12.5 mg DAILY TAWANDA Administration Metoprolol Succinate 50 mg 06/21/23 09:00 06/21/23 07:51 Metoprolol Succinate (Er) 50 Mg Tab.Er.24h PO 50 mg DAILY TAWANDA Administration Spironolactone 12.5 mg 06/21/23 12:00 Spironolactone 25 Mg Tab PO DAILY [facility] Tamsulosin HCl 0.4 mg 06/20/23 21:00 06/21/23 07:51 Tamsulosin 0.4 Mg Cap.Er.24h PO 0.4 mg BID TAWANDA Administration Intake and Output 06/20/23 06/21/23 06/21/23 22:59 06:59 14:59 Intake Total 540 0 Output Total 1795 1325 200 Balance -2547 -4390 -200 Intake: Oral 540 0 Output: Urine 9472 132 200 Other: Voiding Method Urinal Urinal Urinal Weight 58.967 kg 60.1 kg 06/21/23 08:56 06/21/23 08:56
[2023-06-22 09:19] LABS: HGB 14.8 gm/dL (13.0-17.5); MCH 30.6 pg (25.0-35.0); MCHC 32.9 g/dL (31.0-37.0); MCV 93.2 fL (80.0-100.0); Mean Platelet Volume 7.9; Platelet Count 241 k/uL (150-450); RBC 4.83 m/uL (4.30-5.90); RDW 13.2 % (11.5-15.5); WBC 6.8 k/uL (3.8-10.6)
[2023-06-22 09:35] LABS: ALT 19 U/L (4-49); AST 25 U/L (17-59); African American GFR (CKD) 54 (>60 ml/min/1.73 sqM); Albumin 3.8 g/dL (3.5-5.0); Alkaline Phosphatase 114 U/L (38-126); Anion Gap 7 mmol/L; Blood Urea Nitrogen 23 mg/dL (9-20); Calcium 9.3 mg/dL (8.4-10.2); Carbon Dioxide 31 mmol/L (22-30); Chloride 99 mmol/L (98-107); Glucose 119 mg/dL (74-99); Magnesium 1.9 mg/dL (1.6-2.3); Non-African American GFR(CKD) 47 (>60 ml/min/1.73 sqM); Potassium 3.9 mmol/L (3.5-5.1); Sodium 137 mmol/L (137-145); Total Bilirubin 1.5 mg/dL (0.2-1.3); Total Protein 6.4 g/dL (6.3-8.2)
--- NOTE | 2023-06-22 12:56 | P.PN ---
Subjective HISTORY OF PRESENTING ILLNESS This is a pleasant 82-year-old male past medical history significant for coronary artery disease status post bypass grafting and PCI of the [place] vessel, ischemic cardiomyopathy, persistent atrial fibrillation, chronic systolic heart failure ejection fraction 20-25%, left bundle branch block, hypertension and dyslipidemia. He follows in the office with Dr. Fulton. We have been asked to see in consultation for shortness of breath. He was here in May and found to be new onset afib with EF 25-30. He saw Dr Arambula and was recommended for BiV ICD placement which is scheduled for August 04. He presented to the hospital with symptoms of shortness of breath. He is receiving IV diuretics. Initial output is 3.4 L. He is seen walking up and down the [place]. Breathing has improved. He has no chest pain, dizziness or palpitations. DIAGNOSTICS EKG reveals atrial fibrillation with left bundle branch block heart rate of 98. Telemetry tracings indicate atrial fib. Chest xray left basilar infiltrate and small effusion. Laboratory reviewed, CBC unremarkable, sodium 137, potassium 4.1, creatinine 1.31, magnesium 1.8, troponins negative 3, NT proBNP 12,800. Current cardiac medications include liquids 2.5 mg twice a day, atorvastatin 40 mg at bedtime, losartan 12.5 mg daily and Toprol 50 mg daily. 06/22/2023 Pt seen and examined sitting up in bed in no acute distress. Blood pressure 103/68 heart rate 66 afebrile maintaining oxygen saturation on room air. Laboratory data reviewed, CBC unremarkable, sodium 137, potassium 3.9, creatinine 1.4, magnesium 1.9. 3.1 L of urine output in 24 hours maintaining a negative fluid balance. PHYSICAL EXAMINATION Blood pressure of 107/69 heart rate 62 afebrile and maintaining oxygen saturation on nasal cannula. CONSTITUTIONAL: No apparent distress. HEENT: Head is normocephalic. Pupils are equal, round. Sclerae anicteric. Mucous membranes of the mouth are moist. No JVD. No carotid bruit. CHEST EXAMINATION: Lungs are clear to auscultation. No chest wall tenderness is noted on palpation or with deep breathing. HEART EXAMINATION: Irregular rate and rhythm. S1, S2 heard. No murmurs, gallops or rub. ABDOMEN: Soft, nontender. EXTREMITIES: 2+ peripheral pulses, no lower extremity edema and no calf tenderness. NEUROLOGIC EXAMINATION: Patient is awake, alert and oriented x3. ASSESSMENT Acute on chronic systolic heart failure, EF 20-25% Persistent atrial fibrillation, controlled rate Hypertension Coronary artery disease Hyperlipidemia PLAN Transition to oral diuretics, changed to bumex 1 mg PO daily. BMP in 1 week. Follow-up with Dr. Fulton. Stable for discharge from a cardiac perspective. Nurse Practitioner note has been reviewed, I agree with a documented findings and plan of care. Patient was seen and examined. Objective - Vital Signs Vital signs: Vital Signs Temp 97.7 F 06/22/23 07:35 Pulse 65 06/22/23 07:35 Resp 17 06/22/23 07:35 BP 117/74 06/22/23 07:35 Pulse Ox 97 06/22/23 07:35 FiO2 Intake & Output 06/21/23 06/22/23 06/22/23 18:59 06:59 18:59 Intake Total 590 Output Total 1337 1810 250 Balance -747 -1810 -250 Weight 60.1 kg 57.2 kg Intake: Oral 590 Output: Urine 1337 1810 250 Other: Voiding Method Urinal Urinal Urinal # Voids 2 - Labs CBC & Chem 7: 06/22/23 07:24 06/22/23 07:24 Labs: Abnormal Lab Results - Last 24 Hours (Table) 06/22/23 Range/Units 07:24 Carbon Dioxide 31 H (22-30) mmol/L BUN 23 H (9-20) mg/dL Creatinine 1.40 H (0.66-1.25) mg/dL Glucose 119 H (74-99) mg/dL Total Bilirubin 1.5 H (0.2-1.3) mg/dL
--- NOTE | 2023-06-22 13:36 | P.PN ---
Subjective Progress Note Date: 06/22/23 Hospital course: Patient is a very pleasant 82-year-old male with a past medical history of CAD status post CABG x 3, recently diagnosed atrial fibrillation, ischemic cardiomyopathy with HFrEF 25-30%, previously known left bundle branch block, hypertension, hyperlipidemia, COPD and moderate pulmonary hypertension, and BPH. Pt presented to the emergency department from PCPs office on 06/20/2023 secondary to concerns of CHF exacerbation. Patient presented to his PCPs office originally secondary to complaints of worsening nonproductive cough and shortness of breath progressively worsening over the past 2 weeks. He reportd also experiencing some dizziness/lightheadedness upon standing and some occasional chest tightness/pressure. Patient reported he has been following outpatient with Dr. Aponte and they have been discussing AICD placement. He underwent full evaluation in the emergency department. Vital signs upon arrival show blood pressure 117/79, heart rate 95, respiratory rate 24, temp 98.3 F, SpO2 92% on room air. EKG completed showing atrial fibrillation with a left bundle branch block at 98 bpm. Chest x-ray completed showing a left basilar infiltrate and/or atelectasis and small pleural effusion along with hyperinflation compatible with COPD. Labs completed and reviewed. CBC unremarkable. BMP showing hypocarbia with bicarb of 21 otherwise unremarkable. Magnesium normal findings at 1.9. Liver profile showing elevated total bili of 1.5 otherwise normal findings. Troponin 0.015. proBNP 12,800. Patient given Lasix 40 mg IV push in the emergency department and admitted under our services with consultation to cardiology. Troponins trended overnight resulting at 0.015, 0.014, and 0.016. Physical exam: Patient seen and fully evaluated at bedside this morning. He appears to be jimi athing much easier this morning and currently denies having any complaints. He again had over 3 L of urinary output over the past 24 hours, cardiology transitioning from IV Lasix to oral Bumex 1 mg daily and Aldactone 12.5 mg daily. His lower extremity edema significantly improved with only scant edema remaining. Patient remains on 2 L O2 but SpO2 ranging from 94 to 97%. RN reports she is getting ready to walk patient and taking patient off of oxygen. Now that patient has underwent successful IV diuresis, we will monitor how well he does without oxygen and with ambulation and plan for discharge within the next 24 hours. Vital signs reviewed and stable. General: Nontoxic, no distress and appears stated age. Derm: Skin warm and dry, normal coloration for ethnicity. Head: Atraumatic, normocephalic and symmetric. Eyes: EOMs intact, no lid lag, and anicteric sclera Mouth: no lip lesions, mucus membranes moist Cardiovascular: irregularly irregular, systolic murmur, positive posterior tibial pulses bilaterally, and cap refill < 2 seconds. Lungs: Respirations even, regular, and unlabored on room air. Lungs diminished. No rales, rhonchi, or wheezes. No accessory muscle usage. Abdominal: soft, nontender to palpation, no guarding, no appreciable organomegaly Ext: ROM intact. No gross muscle atrophy, scant bilateral lower extremity edema, no contractures Neuro: Speech clear, face symmetrical and CN II-XII grossly intact with no noted focal neuro deficits Psych: Alert and oriented to person, place, time, and situation. Appropriate and pleasant affect. Assessment and Plan of Care: Acute on chronic systolic heart failure with previously known EF of 25 to 30% Acute respiratory failure with hypoxia, secondary to above Ischemic cardiomyopathy Chronic atrial fibrillation Left bundle branch block History of CAD status post CABG Hypertension Hyperlipidemia COPD Pulmonary hypertension -Cardiology following, transitioning patient from IV diuretics to oral -Continue telemetry monitoring -Close monitoring of I's and O's and daily weights. Documented urinary output over the past 24 hours is 3147 mL and has had a total weight loss of 2.9 kg or 6.38 lbs during hospitalization. -Cardiac diet with 1500 mL fluid restriction -Continue Lasix 40 mg IVP every 12 hours. -Continue cardiac medication regimen with Eliquis 2.5 mg twice daily, atorvastatin 40 mg nightly, losartan 12.5 mg daily, and metoprolol 50 mg daily. -Continued close monitoring of electrolytes while diuresing. -Echocardiogram completed 05/16/2023, report reviewed showing severely impaired EF of 25 to 30% with moderate biatrial dilation, moderate right ventricular dilation and moderate pulmonary hypertension. Data and imaging reviewed: Documented urinary output over the past 24 hours is 3147 mL and has had a total weight loss of 2.9 kg or 6.38 lbs during hospitalization. Vital signs reviewed. Blood pressure 117/74, heart rate 65, respiratory rate 17, temp 97.7 F, and SpO2 of 97% on room air. Morning labs reviewed. CBC unremarkable. BMP showing mild hypercarbia with bicarb of 31 and slightly elevated but stable renal function with BUN of 23, creatinine 1.40, and GFR 47. Liver profile showing total bili of 1.5. Magnesium was normal findings at 1.9. Now that patient has underwent successful IV diuresis, we will monitor how well he does without oxygen and with ambulation and plan for discharge within the next 24 hours. CODE STATUS: Full code DVT prophylaxis: Eliquis Anticipated discharge date: Within the next [address]: Home, possibly with home care Patient was seen independently by Nurse Practitioner. This document was prepared using [employer] dictation software. Please allow for e rrors in certified surgical first assistant while rare they do occur. I reviewed the documentation as provided by the FLOWER above, who is the original author of this note. I agree with the documented assessment and plan, with the following changes: none Objective - Vital Signs Vital signs: Vital Signs Temp 97.7 F 06/22/23 07:35 Pulse 65 06/22/23 07:35 Resp 17 06/22/23 07:35 BP 117/74 06/22/23 07:35 Pulse Ox 97 06/22/23 07:35 FiO2 Intake & Output 06/21/23 06/22/23 06/22/23 18:59 06:59 18:59 Intake Total 590 Output Total 1337 1810 Balance -747 -1810 Weight 60.1 kg 57.2 kg Intake: Oral 590 Output: Urine 1337 1810 Other: Voiding Method Urinal Urinal # Voids 2 - Labs CBC & Chem 7: 06/23/23 06:04 06/23/23 06:04 Labs: Abnormal Lab Results - Last 24 Hours (Table) 06/21/23 Range/Units 08:56 BUN 21 H (9-20) mg/dL Creatinine 1.31 H (0.66-1.25) mg/dL Glucose 183 H (74-99) mg/dL Total Bilirubin 1.7 H (0.2-1.3) mg/dL Total Protein 6.2 L (6.3-8.2) g/dL
[2023-06-23 07:00] LABS: HCT 44.3 % (39.0-53.0); HGB 14.4 gm/dL (13.0-17.5); MCH 30.4 pg (25.0-35.0); MCHC 32.4 g/dL (31.0-37.0); MCV 93.7 fL (80.0-100.0); Mean Platelet Volume 7.4; Platelet Count 229 k/uL (150-450); RBC 4.73 m/uL (4.30-5.90); RDW 12.8 % (11.5-15.5); WBC 8.1 k/uL (3.8-10.6)
[2023-06-23 07:22] LABS: Potassium 3.8 mmol/L (3.5-5.1)
[2023-06-23 07:23] LABS: ALT 18 U/L (4-49); AST 25 U/L (17-59); African American GFR (CKD) 52 (>60 ml/min/1.73 sqM); Albumin 3.4 g/dL (3.5-5.0); Alkaline Phosphatase 107 U/L (38-126); Anion Gap 5 mmol/L; Blood Urea Nitrogen 26 mg/dL (9-20); Calcium 8.9 mg/dL (8.4-10.2); Carbon Dioxide 33 mmol/L (22-30); Chloride 98 mmol/L (98-107); Glucose 122 mg/dL (74-99); Magnesium 1.9 mg/dL (1.6-2.3); Non-African American GFR(CKD) 45 (>60 ml/min/1.73 sqM); Sodium 136 mmol/L (137-145); Total Bilirubin 1.1 mg/dL (0.2-1.3); Total Protein 5.9 g/dL (6.3-8.2)
--- NOTE | 2023-06-23 07:47 | P.PN ---
Subjective Progress Note Date: 06/23/23 HISTORY OF PRESENTING ILLNESS This is a pleasant 82-year-old male past medical history significant for coronary artery disease status post bypass grafting and PCI of the [place] vessel, ischemic cardiomyopathy, persistent atrial fibrillation, chronic systolic heart failure ejection fraction 20-25%, left bundle branch block, hypertension and dyslipidemia. He follows in the office with Dr. Fulton. We have been asked to see in consultation for shortness of breath. He was here in May and found to be new onset afib with EF 25-30. He saw Dr Arambula and was recommended for BiV ICD placement which is scheduled for August 04. He presented to the hospital with symptoms of shortness of breath. He is receiving IV diuretics. Initial output is 3.4 L. He is seen walking up and down the [place]. Breathing has improved. He has no chest pain, dizziness or palpitations. DIAGNOSTICS EKG reveals atrial fibrillation with left bundle branch block heart rate of 98. Telemetry tracings indicate atrial fib. Chest xray left basilar infiltrate and small effusion. Laboratory reviewed, CBC unremarkable, sodium 137, potassium 4.1, creatinine 1.31, magnesium 1.8, troponins negative 3, NT proBNP 12,800. Current cardiac medications include liquids 2.5 mg twice a day, atorvastatin 40 mg at bedtime, losartan 12.5 mg daily and Toprol 50 mg daily. 06/22/2023 Pt seen and examined sitting up in bed in no acute distress. Blood pressure 103/68 heart rate 66 afebrile maintaining oxygen saturation on room air. Laboratory data reviewed, CBC unremarkable, sodium 137, potassium 3.9, creatinine 1.4, magnesium 1.9. 3.1 L of urine output in 24 hours maintaining a negative fluid balance. 06/23 Patient is seen today in follow-up. Yesterday he was transition to Bumex 1 mg oral daily and continued on Toprol, Aldactone, losartan and Eliquis. Patient feels that his breathing is stable today. Repeat blood work reveals BUN 21 creatinine 1.31. Heart rate is 61. Blood pressure 104/72. PHYSICAL EXAMINATION CONSTITUTIONAL: No apparent distress. HEENT: Head is normocephalic. Pupils are equal, round. Sclerae anicteric. Mucous membranes of the mouth are moist. No JVD. No carotid bruit. CHEST EXAMINATION: Lungs are clear to auscultation. No chest wall tenderness is noted on palpation or with deep breathing. HEART EXAMINATION: Irregular rate and rhythm. S1, S2 heard. No murmurs, gallops or rub. ABDOMEN: Soft, nontender. EXTREMITIES: 2+ peripheral pulses, no lower extremity edema and no calf tendern ess. NEUROLOGIC EXAMINATION: Patient is awake, alert and oriented x3. ASSESSMENT Acute on chronic systolic heart failure, EF 20-25% Persistent atrial fibrillation, controlled rate Hypertension Coronary artery disease Hyperlipidemia PLAN Continue oral diuretics, bumex 1 mg PO daily. BMP in 1 week. Follow-up with Dr. Fulton in 2 weeks. Stable for discharge from a cardiac perspective. Nurse Practitioner note has been reviewed, I agree with a documented findings and plan of care. Patient was seen and examined. Objective - Vital Signs Vital signs: Vital Signs Temp 97.8 F 06/22/23 20:00 Pulse 61 06/23/23 04:00 Resp 16 06/23/23 04:00 BP 104/72 06/23/23 04:00 Pulse Ox 92 L 06/23/23 04:00 FiO2 Intake & Output 06/22/23 06/23/23 06/23/23 18:59 06:59 18:59 Intake Total 420 Output Total 370 160 Balance 50 -160 Weight 57.4 kg Intake: Oral 420 Output: Urine 370 160 Other: Voiding Method Urinal Urinal - Labs CBC & Chem 7: 06/23/23 06:04 06/23/23 06:04 Labs: Abnormal Lab Results - Last 24 Hours (Table) 06/22/23 06/23/23 Range/Units 07:24 06:04 Sodium 136 L (137-145) mmol/L Carbon Dioxide 31 H 33 H (22-30) mmol/L BUN 23 H 26 H (9-20) mg/dL Creatinine 1.40 H 1.45 H (0.66-1.25) mg/dL Glucose 119 H 122 H (74-99) mg/dL Total Bilirubin 1.5 H (0.2-1.3) mg/dL Total Protein 5.9 L (6.3-8.2) g/dL Albumin 3.4 L (3.5-5.0) g/dL
[2023-06-23] MEDS: BUMETANIDE 1 MG TAB PO SCH (08:07)
[2023-06-23 08:33] VITALS: TEMP 97.5
--- NOTE | 2023-06-23 10:00 | P.DS ---
Providers Date of admission: 06/20/23 15:47 Expected date of discharge: 06/23/23 Attending physician: Ulises Justin MD Consults: 06/20/23 15:46 Consult Physician Routine Consulting Provider: Porter Arambula Consult Reason/Comments: CHF, afib Do you want consulting provider notified?: Yes [facility] Course: Discharge Diagnosis: Acute on chronic systolic heart failure with previously known EF of 25 to 30% Acute respiratory failure with hypoxia, secondary to above Ischemic cardiomyopathy Chronic atrial fibrillation Left bundle branch block History of CAD status post CABG Hypertension Hyperlipidemia COPD Pulmonary hypertension Hospital course: Patient is a very pleasant 82-year-old male with a past medical history of CAD status post CABG x 3, recently diagnosed atrial fibrillation, ischemic cardiomyopathy with HFrEF 25-30%, previously known left bundle branch block, hypertension, hyperlipidemia, COPD and moderate pulmonary hypertension, and BPH. Pt presented to the emergency department from PCPs office on 06/20/2023 secondary to concerns of CHF exacerbation. Patient presented to his PCPs office originally secondary to complaints of worsening nonproductive cough and shortness of breath progressively worsening over the past 2 weeks. He reportd also experiencing some dizziness/lightheadedness upon standing and some occasional chest tightness/pressure. Patient reported he has been following outpatient with Dr. Aponte and they have been discussing AICD placement. He underwent full evaluation in the emergency department. Vital signs upon arrival show blood pressure 117/79, heart rate 95, respiratory rate 24, temp 98.3 F, SpO2 92% on room air. EKG completed showing atrial fibrillation with a left bundle branch block at 98 bpm. Chest x-ray completed showing a left basilar infiltrate and/or atelectasis and small pleural effusion along with hyperinflation compatible with COPD. Labs completed and reviewed. CBC unremarkable. BMP showing hypocarbia with bicarb of 21 otherwise unremarkable. Magnesium normal findings at 1.9. Liver profile showing elevated total bili of 1.5 otherwise normal findings. Troponin 0.015. proBNP 12,800. Patient given Lasix 40 mg IV push in the emergency department and admitted under our services with consultation to cardiology. Troponins trended overnight resulting at 0.015, 0.014, and 0.016. Patient was evaluated by cardiology. Heart failure medication regimen was maximized. After successful IV diuresis, patient's condition improving and breathing much improved. Home oxygen evaluation was completed, patient 98% on room air with rest and 95% on room air with ambulation. Patient to continue daily cardiac medication regimen with Eliquis 2.5 mg twice daily, atorvastatin 40 mg nightly, losartan 12.5 mg daily metoprolol 50 mg daily, and was started on Bumex 1 mg daily and Aldactone 12.5 mg daily. Patient to follow-up outpatient with PCP in 1 to 2 days and with senior ui web developer, Dr. Oneill in 2 weeks for reevaluation and further discussion/scheduling of AICD placement.. Physical exam: Vital signs reviewed and stable. General: Nontoxic, no distress and appears stated age. Derm: Skin warm and dry, normal coloration for ethnicity. Head: Atraumatic, normocephalic and symmetric. Eyes: EOMs intact, no lid lag, and anicteric sclera Mouth: no lip lesions, mucus membranes moist Cardiovascular: irregularly irregular, systolic murmur, positive posterior tibial pulses bilaterally, and cap refill < 2 seconds. Lungs: Respirations even, regular, and unlabored on room air. Lungs diminished. No rales, rhonchi, or wheezes. No accessory muscle usage. Abdominal: soft, nontender to palpation, no guarding, no appreciable organomegaly Ext: ROM intact. No gross muscle atrophy, scant bilateral lower extremity edema, no contractures Neuro: Speech clear, face symmetrical and CN II-XII grossly intact with no noted focal neuro deficits Psych: Alert and oriented to person, place, time, and situation. Appropriate and pleasant affect. A total of minutes of time were spent preparing this complex discharge summary. Pt was discharged on 06/23/2023 at 9:56 AM. Patient was seen independently by Nurse Practitioner. This document was prepared using [employer] dictation software. Please allow for errors in car rental agent while rare they do occur. I reviewed the documentation as provided by the FLOWER above, who is the original author of this note. I agree with the documented assessment and plan, with the following changes: none Patient Condition at Discharge: Stable Plan - Discharge Summary Discharge Rx Participant: No New Discharge Prescriptions: New Spironolactone [Aldactone] 12.5 mg PO DAILY 90 Days #45 tab Bumetanide [BUMEX] 1 mg PO DAILY 90 Days #90 tab Continue Atorvastatin [Lipitor] 40 mg PO HS Benzonatate [Tessalon Perles] 100 mg PO TID PRN PRN Reason: Cough Apixaban [Eliquis] 2.5 mg PO BID #90 tab Tamsulosin [Flomax] 0.4 mg PO BID guaiFENesin-DM 100-10MG/5ML [Robitussin DM] 10 ml PO Q6HR PRN #90 ml PRN Reason: Cough Losartan [Cozaar] 12.5 mg PO DAILY Metoprolol Succinate [Toprol XL] 50 mg PO DAILY Discharge Medication List Atorvastatin [Lipitor] 40 mg PO HS 07/16/22 [History] Tamsulosin [Flomax] 0.4 mg PO BID 07/16/22 [History] Benzonatate [Tessalon Perles] 100 mg PO TID PRN 05/16/23 [History] Apixaban [Eliquis] 2.5 mg PO BID #90 tab 05/18/23 [Rx] guaiFENesin-DM 100-10MG/5ML [Robitussin DM] 10 ml PO Q6HR PRN #90 ml 05/18/23 [Rx] Losartan [Cozaar] 12.5 mg PO DAILY 06/20/23 [History] Metoprolol Succinate [Toprol XL] 50 mg PO DAILY 06/20/23 [History] Bumetanide [BUMEX] 1 mg PO DAILY 90 Days #90 tab 06/23/23 [Rx] Spironolactone [Aldactone] 12.5 mg PO DAILY 90 Days #45 tab 06/23/23 [Rx] Follow up Appointment(s)/Referral(s): Joseph Gabriel DO [Primary Care Provider] - 06/27/23 8:00 pm ([facility]) Adebayo Fulton MD [STAFF PHYSICIAN] - 07/07/23 11:15 am (at the main office ) Ambulatory/Diagnostic Orders: Basic Metabolic Panel [LAB.AMB] Location: None Selected Patient Instructions/Handouts: Heart Failure (DC), A-fib (Atrial Fibrillation) (DC) Activity/Diet/Wound Care/Special Instructions: Activity: As tolerated. Take breaks as needed. Diet: Heart healthy and carb consistent diet. Avoid salts, or foods with hidden salts such as canned or boxed foods and frozen dinners. Extra salt makes your heart work harder and traps the fluid in your body for longer. Special Instructions: Weigh yourself every morning after you urinate. If you gain 3 pounds overnight or more than 5 pounds in one week, call your primary physician and senior ui web developer for guidance on your medications or they may want to see you in their office. Keep a daily log of your weights and be sure to bring with you at follow up visits with your PCP and senior ui web developer. Take all of your medications as directed, especially your water pills. NEVER skip a dose. And remember to keep all of your doctor's appointments and follow- up as needed. Elevate your legs when you are not up moving around to help with circulation and prevent swelling. Compression stockings are also a great way to improve lower extremity circulation and prevent/improve lower extremity edema. Call your primary care provider and senior ui web developer if you notice any extra swelling in your legs, ankles, feet or abdomen, if you have a new dry cough, if your shortness of breath worsens with activity or at rest, or if you feel more fatigued. Thank you for allowing us to participate in your care, it was truly a pleasure having you for our patient!!! . Discharge Disposition: HOME SELF-CARE
[2023-06-23 11:04] VITALS: BP 91/55; PULSE 68; RESP 18
== END 2023-06-23 12:44 | disposition home or self-care (01) | DRG 291 ==
LOC: EC 14:08 → 3SCARD 15:46 → OBSVTOIN 15:47 → 3SCARD 16:09
PROVIDERS: ADMIT Student in an Organized Health Care Education/Training Program; ATTEND Student in an Organized Health Care Education/Training Program
DX: I11.0 Hypertensive heart disease with heart failure (principal); I50.23 Acute on chronic systolic (congestive) heart failure; J18.9 Pneumonia, unspecified organism; J96.01 Acute respiratory failure with hypoxia; I48.19 Other persistent atrial fibrillation; J44.0 Chronic obstructive pulmonary disease with (acute) lower respiratory infection; I25.5 Ischemic cardiomyopathy; I44.7 Left bundle-branch block, unspecified; E78.5 Hyperlipidemia, unspecified; I25.10 Atherosclerotic heart disease of native coronary artery without angina pectoris; I27.20 Pulmonary hypertension, unspecified; N40.0 Benign prostatic hyperplasia without lower urinary tract symptoms; G62.9 Polyneuropathy, unspecified; Z79.01 Long term (current) use of anticoagulants; Z79.82 Long term (current) use of aspirin; Z79.899 Other long term (current) drug therapy; Z95.1 Presence of aortocoronary bypass graft; Z95.810 Presence of automatic (implantable) cardiac defibrillator; Z96.653 Presence of artificial knee joint, bilateral
CPT/HCPCS: 36415; 71046; 80053; 83735; 83880; 84484; 85025; 85027; 85610; 85730; 93005; 94760; 96374; 99285

== ENCOUNTER 2023-08-04 08:22 | Day surgery (SDC) | payer MEDICARE ==
[~2023-08-04 08:22] MED LIST: HYDROmorphone 0.5 MG/0.5 ML SYRINGE IVP PRN; MIDAZOLAM 2 MG/2 ML VIAL IV PRN
[2023-08-04] MEDS: SODIUM CHLORIDE 0.9% 1,000 ML IV ONE (08:36)
[2023-08-04 09:10] LABS: ALT 39 U/L (4-49); AST 36 U/L (17-59); African American GFR (CKD) 45 (>60 ml/min/1.73 sqM); Albumin 4.5 g/dL (3.5-5.0); Alkaline Phosphatase 135 U/L (38-126); Anion Gap 12 mmol/L; Blood Urea Nitrogen 40 mg/dL (9-20); Calcium 9.6 mg/dL (8.4-10.2); Carbon Dioxide 25 mmol/L (22-30); Chloride 103 mmol/L (98-107); Glucose 144 mg/dL (74-99); Non-African American GFR(CKD) 39 (>60 ml/min/1.73 sqM); Potassium 4.2 mmol/L (3.5-5.1); Sodium 140 mmol/L (137-145); Total Bilirubin 1.4 mg/dL (0.2-1.3); Total Protein 7.6 g/dL (6.3-8.2)
[2023-08-04] MEDS ORDERED: LIDOCAINE 1% INJ 10MG/ML (20 ML MDV) ONE (10:56)
[2023-08-04] MEDS ORDERED: MIDAZOLAM 2 MG/2 ML VIAL ONE (11:06)
[2023-08-04] MEDS ORDERED: fentaNYL (PF) 50 MCG/ML 2 ML AMP ONE (11:06)
[2023-08-04] MEDS: IOPAMIDOL-370 100ML BTL INJ ONE (11:23)
[2023-08-04] MEDS: LIDOCAINE 1% INJ 10MG/ML (20 ML MDV) SQ ONE (12:02)
[2023-08-04] MEDS: ceFAZolin 1 GM in SODIUM CHLORIDE 0.9% IRRIG BTL 250 ML IRRIGATION PRN (12:05)
--- NOTE | 2023-08-04 14:23 | P.EPPROC ---
- EP Procedure Note Electrophysiology Procedure Note: Diagnosis Cardiomyopathy, chronic, ischemic, underlying CAD, old OK status post coronary artery bypass grafting many years back Congestive heart failure [place] Heart Association class 3 Wide QRS left bundle branch block morphology QRS width greater than 164 ms On guide line directed medical treatment for greater than 3 months Recent onset atrial fibrillation earlier this year, hospitalization for heart failure Procedure: Conduction system pacing with backup ICD for management of risk of sudden cardiac and congestive heart failure Result: Successful implantation of an LV lead with backup ICD, Atrial lead: Patient in atrial fibrillation, atrial cycle length 243 ms good current of injury, stable position, P waves 1.2 mV, pace impedance 475 ohms RV ICD lead: R waves excellent, defib impedance 70 ohms stable position in the RV apex, excellent thresholds intraoperatively Conduction system pacing lead: Left bundle pacing, R waves 10.5 mV, pacing impedance 722 ohms and pacing threshold 0.5 V at point 4 ms Typical right bundle branch block pattern with a system to V6 peak time of less than 70 ms Procedure details: Patient was brought to the EP lab in a fasting state. Written informed consent was obtained prior to the procedure. Options, pros and cons, benefits and risks and complications discussed with patient in detail prior to the procedure (shared decision making) previously. Importance of continuing medical treatment emphasized previously. Alternatives discussed previously. Left upper extremity venogram performed. 15 mL IV dye injected in the left arm. Patent axillary/subclavian vein The left pectoral area was prepped and draped as a protocol. IV antibiotics administered 1% lidocaine was used for local anesthesia. A 4 cm incision was made parallel to the deltopectoral groove, about 1.5 cm medial to it. The incision was carried down to the level of the pectoralis muscle and the subfascial pocket was made. Hemostasis was assured. The axillary vein access was obtained. Appropriately sized into to see sheaths were placed. ICD lead implanted in the right ventricle and screwed in. ICD lead tested for threshold, sensing, impedances and tested with high output pacing for diaphragmatic stimulation. Negative diaphragmatic stimulation Atrial lead placed in the right atrial appendage and tested for threshold, sensing, impedance, and tested with high output pacing. Phrenic nerve stimulation negative Conduction system pacing lead placement: Left bundle pacing performed successfully, appropriate sensing, good current of injury and drop in impedances Right bundle branch block morphology with rapid activation, stimulus to peak of V6 time of 60 ms, unipolar intraoperative Left bundle type-ICD coil, unipolar configuration, stimulus to V6 peak was 70 ms Bipolar pacing on the left bundle intraoperatively, stimulus-peak of V6 was 76 ms Leads secured to the underlying pectoral muscle after removing sheaths . Pocket irrigated with antibiotic solution. Antibiotic pouch placed Left bundle lead screwed in the RV port after dual-chamber ICD ICD RV pin capped and secured to the muscle Leads connected to the ICD generator. Wound closed in 3 layers and dressed per protocol ICD interrogated and programmed. Appropriate pacing parameters, antitachycardia therapies with antitachycardia pacing cardioversion defibrillations programmed. Patient is in atrial fibrillation therefore the base rate was increased to 75 bpm and the dose of beta-blockers was doubled Patient tolerated the procedure well without any acute complications. See scanned device report in EMR for lead details Please note anticoagulation was held for 24 hours Plan Defibrillation level testing in about 2 months on full anticoagulation
--- NOTE | 2023-08-04 14:27 | P.EPPROC ---
- EP Procedure Note Electrophysiology Procedure Note: This is an elderly gentleman small built with congestive heart failure secondary to ischemic cardiomyopathy and a left bundle branch block and persistent atrial fibrillation Since he has a small built I decided to implant a dual-chamber ICD to reduce the ICD size especially the header size Left bundle lead was used as the rate-Sense lead and the RV pacing component of the ICD was capped and secured to the muscle This allowed us to use a small size ICD with the smallest size had a in this elderly gentleman with a diminutive frame
[2023-08-04] MEDS: ACETAMINOPHEN TAB 325 MG TAB PO PRN (14:52)
[2023-08-04] MEDS: LACTATED RINGERS 1,000 ML IV SCH (19:17)
[2023-08-04] MEDS: SODIUM CHLORIDE 0.9% 1,000 ML IV SCH (19:17)
[2023-08-04 20:05] VITALS: RESP 16
[2023-08-04] MEDS: LOSARTAN 25 MG TAB PO SCH (21:58)
[2023-08-04] MEDS: TAMSULOSIN 0.4 MG CAP.ER.24H PO SCH (21:58)
[2023-08-04] MEDS: METOPROLOL SUCCINATE (ER) 50 MG TAB.ER.24H PO SCH (21:58)
[2023-08-04] MEDS: ATORVASTATIN 40 MG TAB PO SCH (21:59)
[2023-08-05] MEDS: APIXABAN 2.5 MG TABLET PO SCH (08:43)
[2023-08-05] MEDS: BUMETANIDE 1 MG TAB PO SCH (10:52)
[2023-08-05] MEDS: SPIRONOLACTONE 25 MG TAB PO SCH (10:53)
[2023-08-05 14:18] VITALS: BP 119/75; PULSE 63; TEMP 97.9
--- NOTE | 2023-08-05 14:59 | P.DS ---
Providers Attending physician: Porter Arambula Primary care physician: [facility] Course: Patient is doing well He has been ambulating around the room sitting in the chair. Currently lying comfortably in bed No hematoma no swelling no bruising no soakage Normal heart sounds no murmurs Breath sounds are clear no rhonchi no crackles Chest x-ray was reviewed. All 3 leads in excellent position No pneumothorax On examination blood pressure is 90 to 100 mmHg asymptomatic no dizziness Breath sounds are clear ICD check within normal limits Thresholds and impedances and sensing Impression Severe ischemic cardiomyopathy with congestive heart failure Persistent atrial fibrillation Status post ICD implantation with conduction system pacing, left bundle pacing Plan Increase the dose of metoprolol to 50 mg twice daily to permit left bundle pacing since the patient has atrial fibrillation Hold losartan for a week Follow-up with Dr. Oneill in the device clinic in a week To reduce the size of the ICD can, patient has a diminutive frame, a dual- chamber ICD was used The patient since portion of the single coil, DF 1 ICD lead was capped and secured The left bundle lead was connected into the RV port for preferential left bundle pacing, R waves 8.1 mV As a result be accomplished implantation of a small ICD generator with a small ahead His twelve-lead EKG shows left bundle pacing with underlying atrial fibrillation Suggest Continue anticoagulation resume all medications but increase the dose of metoprolol to promote left bundle pacing In 2 months defibrillation level testing will be performed since the left bundle lead was connected to the RV port of the ICD + transfer to electrical cardioversion to convert him to sinus rhythm and promote left bundle pacing No amiodarone recommended at this point Hopefully restoring sinus rhythm and promoting left bundle pacing will improve his heart failure status Plan - Discharge Summary Discharge Rx Participant: No New Discharge Prescriptions: New RX: Metoprolol Succinate [Toprol XL] 50 mg PO BID #180 tab Discontinued RX: Metoprolol Succinate [Toprol XL] 50 mg PO QAM No Action RX: Atorvastatin [Lipitor] 40 mg PO HS RX: Apixaban [Eliquis] 2.5 mg PO BID #90 tab RX: Vitamin B Complex 1 tab PO FR RX: Spironolactone [Aldactone] 12.5 mg PO QAM RX: Bumetanide [BUMEX] 1 mg PO QAM RX: Tamsulosin [Flomax] 0.4 mg PO BID RX: Losartan [Cozaar] 12.5 mg PO HS Vit C/E/Zn/Coppr/Lutein/Zeaxan [Preservision Areds 2 Softgel] 1 cap PO BID Cyanocobalamin (Vitamin B-12) [Vitamin B-12] 2,500 mg PO QAM Discharge Medication List RX: Atorvastatin [Lipitor] 40 mg PO HS 07/16/22 [History] RX: Tamsulosin [Flomax] 0.4 mg PO BID 07/16/22 [History] RX: Apixaban [Eliquis] 2.5 mg PO BID #90 tab 05/18/23 [Rx] RX: Losartan [Cozaar] 12.5 mg PO HS 06/20/23 [History] Cyanocobalamin (Vitamin B-12) [Vitamin B-12] 2,500 mg PO QAM 07/30/23 [History] RX: Bumetanide [BUMEX] 1 mg PO QAM 07/30/23 [History] RX: Spironolactone [Aldactone] 12.5 mg PO QAM 07/30/23 [History] RX: Vitamin B Complex 1 tab PO FR 07/30/23 [History] Vit C/E/Zn/Coppr/Lutein/Zeaxan [Preservision Areds 2 Softgel] 1 cap PO BID 07/30/23 [History] RX: Metoprolol Succinate [Toprol XL] 50 mg PO BID #180 tab 08/04/23 [Rx] Follow up Appointment(s)/Referral(s): Porter Arambula MD [STAFF PHYSICIAN] - 08/12/23 3:00 pm (Follow up appointment in the Device Clinic located in [facility] office on Follow-up with Dr. Oneill in the next 4 weeks) Activity/Diet/Wound Care/Special Instructions: PATIENT EDUCATION MATERIAL Instructions following a heart rhythm device implant. 1. Keep dressing DRY for 5 DAYS. You may cover the area with Saran or Cling Wrap, prior to a shower. 2. The dressing will be removed in the Device Clinic at [facility]. Absorbable sutures were used to close the wound. 3. Avoid raising the left arm above the shoulder level. 4 week restriction 4. Avoid arm movements, like backscratching, rubbing the head, or pulling on a cord. 4 weeks restriction 5. Gentle range of motion movements of the shoulder, closest to the incision should be performed to avoid a frozen shoulder. (Pendulum exercises of the shoulder) 6. The opposite arm may be used freely. 7. Avoid driving for 7 days. 8. Avoid activities such as golfing, swimming, weed whacking, lifting more than 10 pounds weight, bowling, gymnastics and weight training/lifting. (6 weeks restriction) 9. Activities such as wood chopping with an axe, pull-ups in the gymnasium, power lifting, arc-welding, being close to home induction cooktops will always be a problem. 10. Arm sling is only a reminder not to raise the arm above the head. You do not need to keep the arm completely immobilized. Your free to move the arm and use it and for normal activities. In case of any problems, please call [facility], [place], @ [phone], Attention: Device Clinic Device clinic follow-up in 5 days Follow-up with primary block greaser in 1 months
--- NOTE | 2023-08-05 19:38 | XR ---
EXAMINATION TYPE: XR chest 2V DATE OF EXAM: 08/05/2023 COMPARISON: 06/20/2023 INDICATION: Lead placement check TECHNIQUE: Frontal and lateral views of the chest are obtained. FINDINGS: The heart size is normal. The pulmonary vasculature is normal. Some hyperinflation is present. The lungs are clear. No pneumothorax is evident Pacemaker overlies left chest. 3 leads are present with leads typical orientation. Sternotomy wires a re in the midline. IMPRESSION: 1. No acute pulmonary process. 2. No pneumothorax post pacemaker placement.
== END 2023-08-05 14:48 | disposition home or self-care (01) ==
LOC: CATHEP 08:22 → 6NMEDSUR 13:45 → CATHEP 08-05 14:48
PROVIDERS: ATTEND Internal Medicine Clinical Cardiac Electrophysiology
DX: I25.5 Ischemic cardiomyopathy (principal); I50.22 Chronic systolic (congestive) heart failure; I48.19 Other persistent atrial fibrillation; I11.0 Hypertensive heart disease with heart failure; I50.9 Heart failure, unspecified; I25.10 Atherosclerotic heart disease of native coronary artery without angina pectoris; I25.2 Old myocardial infarction; Z79.01 Long term (current) use of anticoagulants; Z79.899 Other long term (current) drug therapy; Z95.1 Presence of aortocoronary bypass graft
CPT/HCPCS: 33225; 33249; 80053; 84443; 71046; C1769 ×2; C1721; C1892 ×2; C1730; C1887; C1898; C1895; J2250; J0690 ×2; J2001; J3010; Q9967

== ENCOUNTER 2023-10-02 05:58 | Day surgery (SDC) | payer MEDICARE ==
[2023-09-30 08:47] VITALS: BMI 20.7
[~2023-10-02 05:58] MED LIST changes: -HYDROmorphone 0.5 MG/0.5 ML SYRINGE IVP PRN; +LACTATED RINGERS 1,000 ML IV SCH; -MIDAZOLAM 2 MG/2 ML VIAL IV PRN; +SODIUM CHLORIDE 0.9% 1,000 ML IV SCH
[2023-10-02 06:31] VITALS: RESP 16; TEMP 97.8
[2023-10-02] MEDS: SODIUM CHLORIDE 0.9% 500 ML 500 ML IV ONE (06:51)
[2023-10-02] MEDS ORDERED: PROPOFOL 10 MG/ML 20 ML VIAL IV ONE (07:20)
--- NOTE | 2023-10-02 08:08 | P.EPPROC ---
- EP Procedure Note Electrophysiology Procedure Note: Diagnosis Severe ischemic cardiomyopathy with congestive heart failure and underlying atrial fibrillation Status post BiV ICD with left bundle pacing Left bundle lead was plugged in the RV-icd port, DF 1 ICD lead used At implant R waves were 15 mV Today on interrogation prior to DFT testing, no R waves, complete heart block Final diagnosis Complete heart block, no R waves Conduction system pacing with left bundle pacing Left bundle lead plugged in the RV ICD port Excellent sensing of ventricular fibrillation with a DFT at 10 J Details The BiV ICD, [id number] was interrogated Atrial pacing impedance 570 ohms, patient in atrial fibrillation RV pacing impedance, left bundle, 399 ohms High-voltage impedance 45 ohms No R waves Pacing threshold 0.5 V at point 4 ms, left bundle pacing threshold VF was induced under conscious sedation Successfully detected without any dropouts and successfully internally defibrillated with a 10 J shock Charge time 1.8 seconds shock impedance 50 ohms No post shock noise The patient also converted to sinus rhythm with the same shock BiV ICD was reprogrammed to DDD R60-130 AV delay reprogrammed to paced AV delay of 210 ms Appropriate antitachycardia pacing cardioversion defibrillation programmed Full dose of therapy, VT zone 176 beats a minute, VF zone 214 beats a minute First cardioversion 10 J first defibrillation 30 J
[2023-10-02 17:39] VITALS: BP 107/72; PULSE 69
== END 2023-10-02 08:54 | disposition home or self-care (01) ==
LOC: CATHEP 05:58
PROVIDERS: ATTEND Internal Medicine Clinical Cardiac Electrophysiology
DX: I48.91 Unspecified atrial fibrillation (principal); I25.2 Old myocardial infarction; I44.2 Atrioventricular block, complete; I49.01 Ventricular fibrillation; I10 Essential (primary) hypertension; E78.5 Hyperlipidemia, unspecified; E11.9 Type 2 diabetes mellitus without complications; F17.210 Nicotine dependence, cigarettes, uncomplicated; Z79.82 Long term (current) use of aspirin; Z79.01 Long term (current) use of anticoagulants; Z79.899 Other long term (current) drug therapy; Z98.890 Other specified postprocedural states
CPT/HCPCS: 93642; J2704